=== PATIENT | male | born 1935 | race Caucasian/White ===

== ENCOUNTER → 2022-09-19 12:41 | Outpatient (BNVA) | payer MEDICARE, SELFPAY | PROVIDERS: PCP Internal Medicine; Visit Provider Internal Medicine Cardiovascular Disease | DX: I48.19 Other persistent atrial fibrillation (principal); I10 Essential (primary) hypertension | CPT/HCPCS: 93005; 99202 ==

== ENCOUNTER → 2022-10-14 07:44 | Outpatient (REF) | payer MEDICARE, SELFPAY ==
--- NOTE | 2022-10-14 07:47 | CA_ITS ---
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 The calculated ejection fraction is 51% by biplane method. - There is mild aortic valve regurgitation. - The left atrium is moderately dilated. Findings Left Ventricle Normal left ventricular cavity size. There is mildly increased left ventricular wall thickness. The left ventricular systolic function is mildly decreased. The calculated ejection fraction is 51% by biplane method. There is no evidence of regional wall motion abnormalities. Diastolic function is indeterminate on the basis of available data. Right Ventricle Normal right ventricular cavity size. There is low normal right ventricular systolic function. Atria The left atrium is moderately dilated. The right atrium is normal in size. Aortic Valve The aortic valve was not well visualized. There is no aortic valve stenosis. There is mild aortic valve regurgitation. Mitral Valve The mitral valve appears normal. There is trace mitral valve regurgitation. There is no mitral valve stenosis. Pulmonic Valve The pulmonic valve is likely normal. Tricuspid Valve Normal tricuspid valve structure. There is trace tricuspid valve regurgitation. There is no evidence of pulmonary hypertension. Great Vessels The asc aorta is normal in size. Venous The inferior vena cava is normal in size and collapses less than 50% with inspiration. Pericardium/Pleural There is no evidence of pericardial effusion. Prior Study Comparison No significant change compared to prior study dated: 11/27/2005. Measurements 2D Linear Measurements IVSd: 1.20 0.6-0.9/0.6-1.0 cm LVIDd: 4.14 3.9-5.3/4.2-5.9 cm LVIDd Index: 2.15 2.4-3.2/2.2-3.1 cm/m2 LVIDs: 2.74 2.0-3.6 cm LVPWd: 1.20 0.7-1.1 cm Ao Root: 3.70 2.1-3.5 cm LA Diam: 4.10 2.7-3.8/3.0-4.0 cm LAIDs Index: 2.12 1.5-2.3 cm/m2 LV Mass: 217.12 67-162/88-224 g LV Mass Index: 112.50 43-95/49-115 g/m2 LVOT Diam: 2.10 3.0+(-)1.3 cm 2D Systolic Function EF 4C: 51.70 >55% EF 2C: 52.30 >55% EF BiP: 50.90 >55% Mitral Valve MV Pk E: 0.84 MV Decel Time: 148.00 E'Lateral: 9.14 E'Medial: 9.46 E/E' Med: 8.80 E/E' Lat: 9.10 PHT: 43.00 MVA PHT: 5.12 Decel [place]: 5.66 Aortic Valve AoV Pk Joseph: 1.58 AoV Mn Joseph: 1.00 AoV VTI: 0.35 AoV Pk Grad: 10.00 Aov Mn Grad: 5.00 ARLENE Cont.VTI: 1.64 LVOT LVOT Pk Joseph: 0.75 LVOT Mn Joseph: 0.53 LVOT VTI: 0.16 LVOT Pk Grad: 2.00 LVOT Mn Grad: 1.00 LVOT Diam: 2.10 LVOT Area: 3.46 Diastolic Function MV Pk E: 0.84 E'Medial: 9.46 E/E' Med: 8.80 E' Laterial: 9.14 E/E' Lat: 9.10 Right Ventricle TAPSE (mm): 17.00 Tricuspid Valve TR Pk Joseph: 2.22 TR Pk Grad: 20.00 RA Press: 8.00 RVSP: 28.00 Great Vessels Aorta Ao Root-2D: 3.70 2.0-3.7 cm Ao Asc: 3.90 2.1-3.4 cm Pulmonary Valve PV Pk Joseph: 0.84 Peak PV Grad: 3.00 Updated in Other Vendor System with Status of Final Seferino Aguilera MD electronically signed on 10/14/2022 10:53:42 AM with status of Final
== END ==
LOC: HO.CARD 07:44
PROVIDERS: Absent Provider Internal Medicine Cardiovascular Disease; PCP Internal Medicine; Visit Provider Internal Medicine
DX: I48.19 Other persistent atrial fibrillation (principal)
CPT/HCPCS: 93306

== ENCOUNTER 2022-12-02 12:19 | Outpatient (AMB) | payer MEDICARE, SELFPAY ==
[2022-12-02 12:32] VITALS: BP 124/76; PULSE 91; BMI 28.0
--- NOTE | 2022-12-02 12:32 | A.OFFVIS_ITS ---
Intake Vital Signs 12/02/22 12:32 Height 5 ft 7 in Weight 178 lb 9.191 oz BMI 28.0 BP 124/76 Blood Pressure Location Lt brachial Position Sitting Pulse 91 Intake Visit Reasons: f/up echo/ 3 day Intake Note: Follow-up after echo with ekg feeling good Receiving Associate Required: No Allergies Sulfa (Sulfonamide Antibiotics) Allergy (Severe, Verified 09/19/22 13:00) Irritable penicillin G Allergy (Mild, Verified 09/19/22 13:00) rash Medication List - Last Reconciled 12/02/22 by Jeff Donis MD amlodipine 5 mg PO DAILY apixaban (Eliquis) 5 mg PO BID carvedilol 12.5 mg PO BID lisinopril 40 mg PO DAILY vitamin B complex (B Complex-Vitamin B12 tablet) 1 tab PO DAILY HPI HPI Comments History of Present Illness Details Ananda comes for follow-up. He continues to have no symptoms. Currently has been restarted on Eliquis after urology workup. There is no recurrent hematuria. He is tolerating this therapy well. He has no new symptoms of exercise intolerance with no heart failure symptoms. Denies any lightheadedness, syncope. Blood pressures been generally well controlled. Echocardiogram shows low normal LVEF with moderate left atrial enlargement. [facility] Medical History HTN (hypertension) Surgical History History of back surgery Hx of elbow surgery Family History Father No problems noted. Mother No problems noted. Brother CHF (congestive heart failure) CAD (coronary artery disease) Social History Patient Tobacco Use Status: Former Tobacco user Review of Systems Const Denies chills, Denies fatigue, Denies fever(s), Denies frequent falls, Denies weakness, Denies weight gain and Denies weight loss ENT Denies dizziness Card Denies chest pain, Denies leg edema, Denies lightheadedness, Denies palpitations, Denies dyspnea, Denies dyspnea on exertion, Denies orthopnea and Denies other (loss of consciousness) Resp Denies cough, Denies dyspnea and Denies dyspnea on exertion GI Denies hematochezia and Denies change in stool character Musc Denies abnormal gait, Denies muscle weakness, Denies numbness, Denies radiating pain into limb and Denies tingling Neuro Denies Abnormal speech present, Denies abnormal gait, Denies dizziness, Denies frequent falls, Denies numbness, Denies tingling and Denies weakness Endo Denies fatigue and Denies palpitations Physical Exam Vital Signs: Last Vital Signs Pulse 91 12/02/22 12:32 BP 124/76 12/02/22 12:32 BMI result Body Mass Index 28.0 Const General: cooperative, comfortable, no acute distress, alert, awake, Physically active and well groomed Nutritional Appearance: average body habitus Orientation/consciousness: patient oriented x3 Limitations: no limitations Neck Neck: Yes trachea midline, Yes supple and Yes no JVD Resp Effort & Inspection: normal respiratory effort Auscultation: clear to auscultation bilaterally Cardio Jugular venous distension: no JVD Rate: regular rate Rhythm: abnormal rhythm irregularly irregular Heart sounds: S1 normal heart sound present, S2 normal heart sound present, no click, no gallops, no murmurs and no rubs GI Auscultation: normal bowel sounds Neuro General: patient oriented x3 and no focal motor deficits Speech: No Abnormal speech present Extrem General: Yes no clubbing, cyanosis or edema Office Procedures EKG Details: EKG shows atrial fibrillation with no other abnormalities at 91 beats per minute [id number], Complete Assessment & Plan Assessment & Plan (1) Persistent atrial fibrillation: Code(s): I48.19 - Other persistent atrial fibrillation Plan: Persistent atrial fibrillation in this elderly gentleman with continued good functional status and no signs of congestive heart failure at this point time. We discussed about management again. He is tolerating oral anticoagulant therapy and this should be continued. Importance of oral anticoagulation was discussed. Quarterly renal function test and annual CBC should be checked. If he develops recurrent bleeding issues we discussed about potential use of Watchman device. Continue current rate control strategy. Given that he is not having much symptoms will pursue rate control strategy. This was discussed with him. He is advised to call me prior to travel to [place] if he is having any new symptoms. Continue carvedilol therapy for rate control. Will obtain Holter monitor in near future. (2) HTN (hypertension): Code(s): I10 - Essential (primary) hypertension Plan: Hypertension which is currently well optimized advised to continue current therapy. His blood pressure is currently well optimized. Target goal blood pressure less than 130/84. Low-salt diet was discussed. Will follow up in the clinic in 8 months time, sooner p.r.n.. Thank you for allowing me to partake in his care Orders: Orders ECG 3 day holter monitor Today I48.19 - Other persistent atrial fibrillation Coding Level of Care Code Est Pt Level 4 (60339) Diagnoses Persistent atrial fibrillation I48.19 HTN (hypertension) I10 CPT Codes EKG - CPT: 31638-[id number], Complete ([id number])
== END 2022-12-02 12:58 | disposition home or self-care (01) ==
PROVIDERS: PCP Internal Medicine; Referring Provider Internal Medicine; Visit Provider Internal Medicine Cardiovascular Disease
DX: I48.19 Other persistent atrial fibrillation (principal); I10 Essential (primary) hypertension
CPT/HCPCS: 93010; 99214

== ENCOUNTER → 2022-12-02 12:19 | Outpatient (BNVA) | payer MEDICARE, SELFPAY | PROVIDERS: PCP Internal Medicine; Referring Provider Internal Medicine; Visit Provider Internal Medicine Cardiovascular Disease | DX: I48.19 Other persistent atrial fibrillation (principal); I10 Essential (primary) hypertension | CPT/HCPCS: 93005; 99212 ==

== ENCOUNTER → 2022-12-06 08:25 | Outpatient (REF) | payer MEDICARE, SELFPAY ==
--- NOTE | 2022-12-06 08:28 | HM_ITS ---
Conclusion: 1. Patient was monitored for total period of 3 days 2. Baseline was atrial fibrillation with average heart of 81 beats per minute 3. No significant pauses noted 4. Frequent isolated PVCs noted with total burden of 2% 5. No patient reported events MTDD
== END ==
LOC: HO.CARD 08:25
PROVIDERS: PCP Internal Medicine; Visit Provider Internal Medicine Cardiovascular Disease
DX: I48.19 Other persistent atrial fibrillation (principal)
CPT/HCPCS: 93242

== ENCOUNTER → 2022-12-06 08:28 | Outpatient (BNV) | payer MEDICARE, SELFPAY | PROVIDERS: PCP Internal Medicine; Visit Provider Internal Medicine Cardiovascular Disease | DX: I48.19 Other persistent atrial fibrillation (principal) | CPT/HCPCS: 93244 ==

== ENCOUNTER 2023-08-26 10:17 | Outpatient (AMB) | payer MEDICARE, SELFPAY ==
--- NOTE | 2023-08-26 10:18 | MHC.OFFVIS ---
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 He has been doing very well from cardiac perspective. Continues to remain very active and plays 18 hole golf although he rides. He said he does plenty of walking. He has no exertional chest pain. He denies any shortness of breath. No orthopnea, PND, leg edema. Denies any prolonged palpitations irregular heartbeat. His blood pressure recordings at home have been well controlled. He denies any bleeding issues or neurologic events. [facility] Medical History HTN (hypertension) Surgical History History of back surgery Hx of elbow surgery Family History Father No problems noted. Mother No problems noted. Brother CHF (congestive heart failure) CAD (coronary artery disease) Social History Patient Tobacco Use Status: Former Tobacco user Review of Systems Const Denies chills, Denies fatigue, Denies fever(s), Denies frequent falls, Denies weakness, Denies weight gain and Denies weight loss ENT Denies dizziness Card Denies chest pain, Denies leg edema, Denies lightheadedness, Denies palpitations, Denies dyspnea, Denies dyspnea on exertion, Denies orthopnea and Denies other (loss of consciousness) Resp Denies cough, Denies dyspnea and Denies dyspnea on exertion GI Denies hematochezia and Denies change in stool character Musc Denies abnormal gait, Denies muscle weakness, Denies numbness, Denies radiating pain into limb and Denies tingling Neuro Denies Abnormal speech present, Denies abnormal gait, Denies dizziness, Denies frequent falls, Denies numbness, Denies tingling and Denies weakness Endo Denies fatigue and Denies palpitations Physical Exam Vital Signs: Last Vital Signs Pulse 80 08/26/23 10:19 BP 120/80 08/26/23 10:19 BMI result Body Mass Index 28.7 Const General: cooperative, comfortable, no acute distress, alert, awake, Physically active and well groomed Nutritional Appearance: average body habitus Orientation/consciousness: patient oriented x3 Limitations: no limitations Neck Neck: Yes trachea midline, Yes supple and Yes no JVD Resp Effort & Inspection: normal respiratory effort Auscultation: clear to auscultation bilaterally Cardio Jugular venous distension: no JVD Rate: regular rate Rhythm: abnormal rhythm irregularly irregular Heart sounds: S1 normal heart sound present, S2 normal heart sound present, no click, no gallops, no murmurs and no rubs GI Auscultation: normal bowel sounds Neuro General: patient oriented x3 and no focal motor deficits Speech: No Abnormal speech present Extrem General: Yes no clubbing, cyanosis or edema Assessment & Plan Assessment & Plan (1) Persistent atrial fibrillation: Code(s): I48.19 - Other persistent atrial fibrillation Category: Medical Plan: Chronic persistent atrial fibrillation without any symptoms or signs of cardiac decompensation. Heart rate is well controlled by last Holter monitoring. Continue current rate control therapy with carvedilol. Continue full oral anticoagulation, currently on Eliquis 5 mg b.i.d.. Quarterly renal function test should be pursued and dosing of Eliquis based on his creatinine. If creatinine is greater than 1.5, would reduce his Eliquis dose to 2.5 mg b.i.d.. Will obtain lab work from your office that was recently done. Continue maintain activity level as tolerated. Advised to call me with any new symptoms. Will follow-up echocardiogram in 6 months time. (2) HTN (hypertension): Code(s): I10 - Essential (primary) hypertension Category: Medical Plan: Hypertension which is currently well optimized advised to monitor blood pressure at home maintain a log. Goal blood pressure less than 130/84. Continue current drug regimen. Advised to continue monitor blood pressure at home maintain a log. Low-salt diet was discussed. Will follow up in the clinic in 6 months time, sooner p.r.n.. Thank you for allowing me to partake in his care Orders: Orders CA echo transthoracic complete 5 Months I48.19 - Other persistent atrial fibrillation Coding Level of Care Code Est Pt Level 4 (02391) Diagnoses Persistent atrial fibrillation I48.19 HTN (hypertension) I10
[2023-08-26 10:19] VITALS: BP 120/80; PULSE 80; BMI 28.7
== END 2023-08-26 10:53 | disposition home or self-care (01) ==
PROVIDERS: PCP Internal Medicine; Visit Provider Internal Medicine Cardiovascular Disease
DX: I48.19 Other persistent atrial fibrillation (principal); I10 Essential (primary) hypertension
CPT/HCPCS: 99214

== ENCOUNTER → 2023-08-26 10:17 | Outpatient (BNVA) | payer MEDICARE, SELFPAY | PROVIDERS: PCP Internal Medicine; Visit Provider Internal Medicine Cardiovascular Disease | DX: I48.19 Other persistent atrial fibrillation (principal); I10 Essential (primary) hypertension; Z79.01 Long term (current) use of anticoagulants; Z79.899 Other long term (current) drug therapy | CPT/HCPCS: 99212 ==

== ENCOUNTER → 2024-01-29 08:01 | Outpatient (REF) | payer MEDICARE, SELFPAY ==
--- NOTE | 2024-01-29 08:12 | CA_ITS ---
Transthoracic Echocardiogram Patient (Last, First, Middle): Ananda Whalen G Gender: Male Date of : 1935 Age: 88 Procedure Date: 01/29/2024 Procedure Type: Transthoracic Echocardiogram Location: OP Height: 167.64 cm Weight: 80.74 kg BSA: 1.90 m2 Heart Rate: bpm BP: 130 / 80 mmHg Gum Machine Filler: TO Referring MD: Jeff Donis MD Building Inspection Engineer: Jeff Donis MD Symptoms: I48.19 - Other persistent atrial fibrillation Study Quality: Fair ECG Rhythm: Atrial Fibrillation Conclusions: - 1. Low normal LV ejection fraction 50-55% 2. Severely dilated left atrium 3. Calcific mild aortic stenosis and regurgitation 4. Mildly dilated ascending aorta Findings Left Ventricle Normal left ventricular cavity size. There is normal left ventricular wall thickness. The left ventricular systolic function is low normal. The visually estimated ejection fraction is between 50-55%. Diastolic function is indeterminate on the basis of available data. Right Ventricle Normal right ventricular cavity size. There is mildly decreased right ventricular systolic function. Atria The left atrium is severely dilated. Interatrial shunt cannot be excluded. The right atrium is mildly dilated. Aortic Valve There is mild calcification of the aortic valve. There is mild thickening of the aortic valve. There is mild aortic valve stenosis. There is mild aortic valve regurgitation. Mitral Valve The mitral valve was not well visualized. There is trace mitral valve regurgitation. There is no mitral valve stenosis. Pulmonic Valve The pulmonic valve was not well visualized. Tricuspid Valve The tricuspid valve was not well visualized. Tricuspid regurgitation envelope is inadequate for calculation of right ventricular systolic pressure. Mildly elevated right atrial pressure. Great Vessels The pulmonary artery was not well visualized. There is mild dilatation of the ascending aorta measuring 3.80 cm. Small plaque is seen in the sino tubular ridge. Venous The inferior vena cava is mildly dilated and collapses less than 50% with inspiration. Pericardium/Pleural The pericardium was not well visualized. Prior Study Comparison Changes noted compared to prior study dated: 10/14/2022. mild aortic stenosis is noted Measurements 2D Linear Measurements IVSd: 1.16 0.6-0.9/0.6-1.0 cm LVIDd: 4.40 3.9-5.3/4.2-5.9 cm LVIDd Index: 2.32 2.4-3.2/2.2-3.1 cm/m2 LVIDs: 3.04 2.0-3.6 cm LVPWd: 0.98 0.7-1.1 cm LA Diam: 3.20 2.7-3.8/3.0-4.0 cm LAIDs Index: 1.68 1.5-2.3 cm/m2 LV Mass: 202.32 67-162/88-224 g LV Mass Index: 106.49 43-95/49-115 g/m2 LVOT Diam: 2.00 3.0+(-)1.3 cm 2D Systolic Function EF 4C: 50.70 >55% EF 2C: 53.90 >55% EF BiP: 51.10 >55% Mitral Valve MV Pk E: 0.92 MV Decel Time: 215.00 E'Lateral: 7.80 E'Medial: 8.27 E/E' Med: 11.20 E/E' Lat: 11.80 PHT: 63.00 MVA PHT: 3.49 Decel Grand: 4.29 Aortic Valve AoV Pk Joseph: 1.53 AoV Mn Joseph: 1.08 AoV VTI: 0.30 AoV Pk Grad: 9.00 Aov Mn Grad: 5.00 ARLENE Cont.VTI: 1.61 LVOT LVOT Pk Joseph: 0.69 LVOT Mn Joseph: 0.48 LVOT VTI: 0.15 LVOT Pk Grad: 2.00 LVOT Mn Grad: 1.00 LVOT Diam: 2.00 LVOT Area: 3.14 Diastolic Function MV Pk E: 0.92 E'Medial: 8.27 E/E' Med: 11.20 E' Laterial: 7.80 E/E' Lat: 11.80 Right Ventricle TAPSE (mm): 14.90 TVS' Joseph: 10.00 Tricuspid Valve RA Press: 8.00 Great Vessels Aorta Sinus of Valsalva: 4.23 2.0-3.[address] [place]: 2.99 1.7-3.4 cm Ao Asc: 3.80 2.1-3.4 cm Updated in Other Vendor System with Status of Final Jeff Donis MD electronically signed on 01/30/2024 8:51:54 AM with status of Final
== END ==
LOC: HO.CARD 08:01
PROVIDERS: PCP Internal Medicine; Visit Provider Internal Medicine Cardiovascular Disease
DX: I48.19 Other persistent atrial fibrillation (principal)
CPT/HCPCS: 93306

== ENCOUNTER → 2024-01-29 08:12 | Outpatient (BNV) | payer MEDICARE, SELFPAY | PROVIDERS: PCP Internal Medicine; Visit Provider Internal Medicine Cardiovascular Disease | DX: I35.2 Nonrheumatic aortic (valve) stenosis with insufficiency (principal); I48.19 Other persistent atrial fibrillation; I51.7 Cardiomegaly | CPT/HCPCS: 93306 ==

== ENCOUNTER 2024-02-25 13:38 | Outpatient (AMB) | payer MEDICARE, SELFPAY ==
--- NOTE | 2024-02-25 13:40 | MHC.OFFVIS ---
Vital Signs 02/25/24 13:41 Height 5 ft 7 in Weight 180 lb 12.465 oz BMI 28.3 BP 110/70 Blood Pressure Location Lt brachial Position Sitting Pulse 84 Intake Visit Reasons: f/up echo/ pt away in NOV w/ ekg r/sx2 Intake Note: Follow-up with ekg and echo results feeling good Instrumentation Tech Required: No Allergies Sulfa (Sulfonamide Antibiotics) Allergy (Severe, Verified 09/19/22 13:00) Irritable penicillin G Allergy (Mild, Verified 09/19/22 13:00) rash Medication List - Last Reconciled 02/25/24 by Jeff Donis MD amlodipine 5 mg PO DAILY apixaban (Eliquis) 5 mg PO BID carvedilol 12.5 mg PO BID lisinopril 40 mg PO DAILY vitamin B complex (B Complex-Vitamin B12 tablet) 1 tab PO DAILY HPI Comments Details: Ananda comes for follow-up. He has been doing well from cardiac perspective. Remains very active. Denies any exertional chest pain shortness of breath. No orthopnea, PND, leg edema. No prolonged palpitation irregular heartbeat. Takes all his medications. Most recent echocardiogram shows preserved LV ejection fraction with mild aortic stenosis. No bleeding issues or neurologic events. Recent creatinine at 1.44 PFSH Medical History HTN (hypertension) Surgical History History of back surgery Hx of elbow surgery Family History Father No problems noted. Mother No problems noted. Brother CHF (congestive heart failure) CAD (coronary artery disease) Social History Patient Tobacco Use Status: Former Tobacco user Review of Systems Const Denies chills, Denies fatigue, Denies fever(s), Denies frequent falls, Denies weakness, Denies weight gain and Denies weight loss ENT Denies dizziness Card Denies chest pain, Denies leg edema, Denies lightheadedness, Denies palpitations, Denies dyspnea, Denies dyspnea on exertion, Denies orthopnea and Denies other (loss of consciousness) Resp Denies cough, Denies dyspnea and Denies dyspnea on exertion GI Denies hematochezia and Denies change in stool character Musc Denies abnormal gait, Denies muscle weakness, Denies numbness, Denies radiating pain into limb and Denies tingling Neuro Denies Abnormal speech present, Denies abnormal gait, Denies dizziness, Denies frequent falls, Denies numbness, Denies tingling and Denies weakness Endo Denies fatigue and Denies palpitations Physical Exam Vital Signs: Last Vital Signs Pulse 84 02/25/24 13:41 BP 110/70 02/25/24 13:41 BMI result Body Mass Index 28.3 Const General: cooperative, comfortable, no acute distress, alert, awake, Physically active and well groomed Nutritional Appearance: average body habitus Orientation/consciousness: patient oriented x3 Limitations: no limitations Neck Neck: Yes trachea midline, Yes supple and Yes no JVD Resp Effort & Inspection: normal respiratory effort Auscultation: clear to auscultation bilaterally Cardio Jugular venous distension: no JVD Rate: regular rate Rhythm: abnormal rhythm irregularly irregular Heart sounds: S1 normal heart sound present, S2 normal heart sound present, no click, no gallops, Murmur heart sound present systolic early and no rubs GI Auscultation: normal bowel sounds Neuro General: patient oriented x3 and no focal motor deficits Speech: No Abnormal speech present Extrem General: Yes no clubbing, cyanosis or edema Office Procedures EKG Details: EKG shows atrial fibrillation with heart rate of 84 beats per minute [id number], Complete Assessment & Plan Assessment & Plan (1) Persistent atrial fibrillation: Code(s): I48.19 - Other persistent atrial fibrillation Category: Medical Plan: Chronic persistent atrial fibrillation without any obvious symptoms or signs of cardiac decompensation. Given chronicity of atrial fibrillation and significant left atrial enlargement will pursue rate control approach. Continue carvedilol therapy. Continue full oral anticoagulation, currently on Eliquis 5 mg b.i.d. although noted elevated creatinine. Needs to have basic metabolic profile every 3 months to follow creatinine and if it goes above 1.5 will need reduction dose of Eliquis. (2) HTN (hypertension): Code(s): I10 - Essential (primary) hypertension Category: Medical Plan: Hypertension which is currently well optimized advised to monitor blood pressure at home maintain a log. Goal blood pressure less than 130/84. Low-salt diet was discussed. Understands agrees. Continue maintain activity level as tolerated. (3) Aortic stenosis: Code(s): I35.0 - Nonrheumatic aortic (valve) stenosis Category: Medical Plan: Aortic stenosis which is mild. No interventions required from surgical perspective. Advised to continue monitor echocardiogram on a yearly basis. Will follow up in the clinic in 1 year's time, sooner p.r.n.. Thank you for allowing me to partake in his care Orders: Orders Basic Metabolic Panel 3 Months I48.19 - Other persistent atrial fibrillation CA echo transthoracic complete 1 Year I35.0 - Nonrheumatic aortic (valve) stenosis Coding Level of Care Code Est Pt Level 4 (58747) Complex EM visit Add On G2211 Diagnoses Persistent atrial fibrillation I48.19 HTN (hypertension) I10 Aortic stenosis I35.0 CPT Codes EKG - CPT: 57468-[id number], Complete ([id number])
[2024-02-25 13:41] VITALS: BP 110/70; PULSE 84; BMI 28.3
== END 2024-02-25 14:07 | disposition home or self-care (01) ==
LOC: HO.HCS 13:39
PROVIDERS: PCP Internal Medicine; Visit Provider Internal Medicine Cardiovascular Disease
DX: I48.19 Other persistent atrial fibrillation (principal); I10 Essential (primary) hypertension; I35.0 Nonrheumatic aortic (valve) stenosis
CPT/HCPCS: 93010; 99214; G2211

== ENCOUNTER → 2024-02-25 13:38 | Outpatient (BNVA) | payer MEDICARE, SELFPAY | PROVIDERS: PCP Internal Medicine; Visit Provider Internal Medicine Cardiovascular Disease | DX: I48.19 Other persistent atrial fibrillation (principal); I10 Essential (primary) hypertension; I35.0 Nonrheumatic aortic (valve) stenosis | CPT/HCPCS: 93005; 99212 ==

== ENCOUNTER → 2025-01-24 08:37 | Outpatient (REF) | payer MEDICARE, SELFPAY ==
--- NOTE | 2025-01-24 08:41 | CA_ITS ---
Transthoracic Echocardiogram Patient (Last, First, Middle): Ananda Whalen G Gender: M Date of : 1935 Age: 89 Procedure Date: 01/24/2025 Procedure Type: Transthoracic Echocardiogram Location: OP Height: 170.18 cm Weight: 81.19 kg BSA: 1.93 m2 Heart Rate: 54 bpm BP: 152 / 80 mmHg Cushion Maker: INES Referring MD: Jeff Donis MD Ambulance Driver: Jeff Donis MD Symptoms: I35.0 - Nonrheumatic aortic (valve) stenosis Study Quality: Fair ECG Rhythm: Atrial Fibrillation Conclusions: - 1. Low normal LV ejection fraction 50-55% 2. At least moderately dilated left atrium 3. Mild aortic stenosis and regurgitation 4. Mild mitral regurgitation 5. Mildly dilated ascending aorta at 4.2 cm 6. No gross pericardial effusion Findings Left Ventricle Normal left ventricular cavity size. There is mildly increased left ventricular wall thickness. The left ventricular systolic function is low normal. The visually estimated ejection fraction is between 50-55%. Diastolic function is indeterminate on the basis of available data. Right Ventricle Normal right ventricular cavity size and systolic function. Atria The left atrium is moderately dilated. Interatrial shunt cannot be excluded. The right atrium is moderately dilated. Aortic Valve There is moderate calcification of the aortic valve. There is mild aortic valve stenosis. There is mild aortic valve regurgitation. Mitral Valve There is mild anterior and posterior mitral leaflet thickening. There is mild mitral valve regurgitation. There is no mitral valve stenosis. Pulmonic Valve The pulmonic valve was not well visualized. Tricuspid Valve Likely normal tricuspid valve structure and function. Tricuspid regurgitation envelope is inadequate for calculation of right ventricular systolic pressure. Normal right atrial pressure. Great Vessels The pulmonary artery was not well visualized. There is mild dilatation of the ascending aorta measuring 4.20 cm. Venous The inferior vena cava is normal in size and collapses greater than 50% with inspiration. Pericardium/Pleural There is no evidence of pericardial effusion. Prior Study Comparison No significant change compared to prior study dated: 01/29/2024. Measurements 2D Linear Measurements IVSd: 1.20 0.6-0.9/0.6-1.0 cm LVIDd: 4.63 3.9-5.3/4.2-5.9 cm LVIDd Index: 2.40 2.4-3.2/2.2-3.1 cm/m2 LVIDs: 3.42 2.0-3.6 cm LVPWd: 1.17 0.7-1.1 cm LA Diam: 4.00 2.7-3.8/3.0-4.0 cm LAIDs Index: 2.07 1.5-2.3 cm/m2 LV Mass: 253.50 67-162/88-224 g LV Mass Index: 131.35 43-95/49-115 g/m2 LVOT Diam: 2.00 3.0+(-)1.3 cm 2D Systolic Function EF 4C: 46.60 >55% EF 2C: 53.90 >55% EF BiP: 49.80 >55% Mitral Valve MV Pk E: 0.90 MV Decel Time: 212.00 E'Lateral: 9.21 E'Medial: 7.87 E/E' Med: 11.40 E/E' Lat: 9.70 PHT: 62.00 MVA PHT: 3.55 Decel Caswell: 4.41 Aortic Valve AoV Pk Joseph: 1.68 AoV Mn Joseph: 1.19 AoV VTI: 0.37 AoV Pk Grad: 11.00 Aov Mn Grad: 7.00 ARLENE Cont.VTI: 1.42 AI Pk Joseph: 3.68 AI Caswell: 2.46 LVOT LVOT Pk Joseph: 0.75 LVOT Mn Joseph: 0.56 LVOT VTI: 0.17 LVOT Pk Grad: 2.00 LVOT Mn Grad: 1.00 LVOT Diam: 2.00 LVOT Area: 3.14 Diastolic Function MV Pk E: 0.90 E'Medial: 7.87 E/E' Med: 11.40 E' Laterial: 9.21 E/E' Lat: 9.70 Right Ventricle TAPSE (mm): 17.30 TVS' Joseph: 8.81 Tricuspid Valve RA Press: 3.00 Great Vessels Aorta Sinus of Valsalva: 3.70 2.0-3.5 cm Ao Asc: 4.20 2.1-3.4 cm Ao Arch: 2.80 Pulmonary Valve PV Pk Joseph: 0.78 Peak PV Grad: 2.00 Updated in Other Vendor System with Status of Final Jeff Donis MD electronically signed on 01/25/2025 12:39:54 PM with status of Final
--- OUTSIDE RECORDS SUMMARY | 2025-01-24 09:16 | XMS_ITS | Encounter Summary ---
Author Organization [facility] Address [address] [place] [id number] Phone Care Team Providers Care Pbx Operator Name Role Phone Juan Cárdenas MD Unavailable [phone] Juan Cárdenas MD Primary Care Provider [phone] Reason for Visit * Reason Comments Medication Refill Encounter Details Date Type Department Care Team (Late st Contact Info) Description 12/30/2024 Refill [facility] Internal Medicine [address], [place] [id number] Juan Cárdenas MD [address] [place] [address] [email or web address] Medication Refill Social History Tobacco Use Types Packs/Day Years Used Date Smoking Tobacco: Former Cigarettes 1 18 1 957 - 1975 Smokeless Tobacco: Never Alcohol Use Standard Drinks/Week Comments Yes 14 (1 standard drink = 0.6 oz pu re alcohol) 2 beers daily Education Answer Date Recorded Are you interested in more education? Not on delvin e 08/16/2022 Are you concerned about learning? Not on file 08/16/2022 No 08/16/2022 No 08/16/2022 Digital Access Answer Date Recorded No 09/10/2022 No 09/10/2022 Reliable internet access at home? Not on file 09/10/2022 Device with a working camera? Not on file Intimate Partner Violence Answer Date R ecorded Denied Basic Needs Not on file 08/24/2024 In the past 12 months have y ou been in a relationship with a person who hurts, threatens, or tries to control you? No 08/24/2024 Worried food would run out Not on file 08/24 In the past 12 months have y ou been in a relationship with a person who hurts, threatens, or tries to control you? No 08/24/2024 Sex and Gender Information Value Date Recorded Sex Assigned at Not on file Legal Sex Male 10:14 PM EDT Gender Identity Not on file Sexual Orientation Not on file documented as of this encounter Progress Notes * Jessica Sanchez CMA - 12/30/2024 10:04 AM EDT IMPORTANT - At least one Rx mismatch identified. Original(s) may be discontinued, , or different strength/form. Review required. Rx Care Gap Status - Instructions for Clinical Staff (prescriber discretion applies): > Mismatch review guide > N/a - No action needed Visit Info Last visit: 08/24/2024 Juan Cárdenas MD - Internal Medicine [facility] > Requested f/u: Not specified Upcoming visit: 02/04/2025 Juan Cárdenas MD - Internal Medicine [facility] ACTIONS TAKEN BY Jessica Sanchez CMA - Criteria met. Direct Oral Anticoagulant (DOAC) Rx Protocol - apixaban Rx mismatch - Original discontinued, , or different strength/form. Criteria for reference: Visit in the past 14 months: Yes Clinical criteria: - BMP within past year: Yes Lab Results Component Value Date SODIUM 139 08/25/2024 POTASSIUM 4.6 08/25/2024 CHLORIDE 104 08/25/2024 CO2 27 08/25/2024 BUN 18 08/25/2024 CREATININE 1.00 08/25/2024 EGFR 73 08/25/2024 documented in this encounter Plan of Treatment Upcoming Encounters Date Type Department Care Team (Late st Contact Info) Description 02/04/2025 9:30 AM EDT [facility] Internal Medicine [address] [place] [address] Juan Cárdenas MD [address] [place] [address] [email or web address] documented as of this encounter Visit Diagnoses Diagnosis Benign essential hypertension Essential hypertension, benign New onset atrial fibrillation Atrial fibrillation documented in this encounter Additional Health Concerns Assessment Noted Time PHQ-2 Depression Total Score: 0 08/21/19 25 2:16 PM EDT documented as of this encounter Care Teams Pbx Operator Relationship Specialty Start Date End Date Juan Cárdenas MD [address] [place] [id number] PCP - General Internal Medicine 10/29/19 Juan Cárdenas MD [address] [place] [address] Insurance Assigned Provider 07/26/23 documented as of this encounter Additional Source Comments The information contained in this document represents components of the legal health record. It is not the complete legal health record.[facility]
--- OUTSIDE RECORDS SUMMARY | 2025-01-24 09:16 | XMS_ITS | Clinical Summary ---
Author Organization [facility] Address [address] [address] Phone Care Team Providers Care Correspondence Transcriber Name Role Phone Juan Cárdenas MD Unavailable [phone] Juan Cárdenas MD Primary Care Provider [phone] Allergies Active Allergy Reactions Criticality Noted Date Comments Penicillins Swelling 10/07/2019 Arms & face Sulfa (Sulfonamide Antibiotics) Other (See Comments) 10/07/2019 drove him wacky Venom-Wasp Swelling 02/06/2021 Also allergic to hornets Medications EPINEPHrine (EPIPEN 2-QUINN) 0.3 mg/0.3 mL auto-injectorIn dications:Bee allergy status Inject 0.3 mL (0.3 mg total) into the muscle once as needed for anaphylaxis. use as needed for bee stings Intramuscular as directed 2 Device 3 018 Active cyanocobalamin, vitamin B-12, 100 MCG tablet Take 1,000 mcg by mouth daily. Active celecoxib (CELEBREX) 200 MG capsuleIndicati ons:Chronic knee pain, unspecified laterality Take 1 capsule (200 mg total) by mouth daily. 20 capsule 023 Active Additional Information Patient taking differently:200 mg OralDaily as needed, Reported on 08/14/2023 tadalafiL (CIALIS, ADCIRCA) 20 MG tabletIndicatio ns:Erectile dysfunction, unspecified erectile dysfunction type Take 1 tablet (20 mg total) by mouth daily as needed. 10 tablet 024 Active carvedilol (COREG) 12.5 MG tabletIndicatio ns:Essential hypertension Take 1 tablet (12.5 mg total) by mouth 2 (two) times a day with meals. 180 tablet 3 Active lisinopril (PRINIVIL,ZESTR IL) 40 MG tabletIndicatio ns:Essential hypertension Take 1 tablet (40 mg total) by mouth daily. 90 tablet 3 024 Active amLODIPine (NORVASC) 5 MG tabletIndicatio ns:Essential hypertension Take 1 tablet (5 mg total) by mouth daily. 90 tablet 3 024 Active ELIQUIS 5 mg tabletIndicatio ns:Benign essential hypertension,Ne w onset atrial fibrillation TAKE 1 TABLET TWICE A DAY 180 tablet 025 Active apixaban (ELIQUIS) 5 mg tabletIndicatio ns:Benign essential hypertension,Ne w onset atrial fibrillation Take 1 tablet (5 mg total) by mouth 2 (two) times a day. 180 tablet 3 024 2024 Discontinued Active Problems Problem Noted Date Diagnosed Date Malignant melanoma of skin of face 02/11/2023 Essential hypertension 02/01/2020 Hypertension 01/11/2019 History of aortic insufficiency 01/11/2019 Overview (01/11/2019): and mitral insufficiency History of transient ischemic attack (TIA) 04/21 Overview (01/11/2019): in 04/2003 - symptoms were visual abnormality affecting the right eye (amaurosis fugax) Encounters Date Type Department Care Team Description 12/30/2024 Refill [facility] Internal Medicine [address] [place] [address] Juan Cárdenas MD Medication Refill 12/08/2024 Ancillary Orders [facility]Outside Imaging [address] [place] [address] System, Provider Not In, PhD 12/08/2024 Telephone [facility] Internal Medicine [address] [place] [address] Juan Cárdenas MD possible artery calcification 11/26/2024 - 11/26/2024 11:59 PM EDT Hospital Encounter [facility]Outside Imaging [address] [place] [address] System, Provider Not In, PhD Discharge Disposition: Home or Self Care from Last 3 Months Immunizations Immunization Administration Dates Next Due COVID-19 (Pre-02/10) Pfizer Vaccine, mRNA, PF 06/19/2020,05/29/2020 COVID-19 Pfizer Comirnaty Vaccine 12+ 05/10/2024 ,03/31/2023 INFLUENZA, SPLIT VIRUS, TRIV ALENT W/ PRESERVATIVE IM 12/20/2016,02/21/2012 Influenza High-Dose Quadriva lent Preservative Free IM 02/11/2023,02/05/2022,02/01/2020 Influenza High-Dose Trivalen t Preservative Free IM 01/02/2024,01/11/2019,01/09/2018,01/06,02/08/2016,02/20/2015,02/18/2014 ,02/15/2013 Influenza Quadrivalent Adjuv anted Preservative Free IM 02/02/2021 Influenza, Unspecified Formulation 02/15/2011,,01/27/2009 Pneumococcal conjugate PCV13 09/30/2014 Pneumococcal polysaccharide PPSV23 09/22/2012, Td (adult) 5 Lf Tetanus Toxo id, PF, Adsorbed 09/12/2011,07/20/2001 Zoster live 10/20/2011 Zoster recombinant 04/25/2020,02/01/2020 Family History Medical History Relation Comments COPD Brother Lung cancer Brother Colon cancer Father Ovarian cancer Mother Relation Status Comments Brother (Age 86) copd Father (Age 93) Mother (Age 47) ovarian cancer Sister (Age 90) Social History Tobacco Use Types Packs/Day Years Used Date Smoking Tobacco: Former Cigarettes 1 18 1 957 - 1974 Smokeless Tobacco: Never Tobacco Cessation:Counseling Given: Not Answered Alcohol Use Standard Drinks/Week Comments Yes 14 [...] on file Sexual Orientation Not on file Last Filed Vital Signs Vital Sign Reading Time Taken Comments Blood Pressure 132/68 08/24/2024 8:51 AM EDT Pulse 84 08/24/2024 8:51 AM EDT Temperature 36.6 C (97.9 F) 08/24/2024 8:51 AM EDT Respiratory Rate 20 08/24/2024 8:51 AM EDT Oxygen Saturation 99% 08/24/2024 8:51 AM EDT Inhaled Oxygen Concentration - - Weight 79.8 kg (176 lb) 08/24/2024 8:51 AM EDT Height 169.3 cm (5' 6.65 ) 08/24/2024 8:51 AM ED T Body Mass Index 27.85 08/24/2024 8:51 AM EDT Plan of Treatment Upcoming Encounters Date Type Department Care Team (Late st Contact Info) Description 02/04/2025 9:30 AM EDT Office Visit [facility] Internal Medicine [address] [place] [address] Juan Cárdenas MD [address] [place] [address] [email or web address] Health Maintenance Due Date Last Done Comments RSV VACCINE (1 - 1-dose 75+ series) 2012 Adult Td,Tdap Booster 09/11/2021 09/12/2011, 002 INFLUENZA VACCINE (#1) 2024 , 02/11/2023, 02/11/2023, Additional history exists COVID-19 VACCINE ( season) 2024 05/10/2024, 03/31/2023, 02/05/2022, Additional history exists DEPRESSION SCREENING 08/20/2025 08/20/2024 CREATININE LEVEL 08/25/2025 08/25/2024, , 08/07/2023, Additional history exists POTASSIUM LEVEL 08/25/2025 08/25/2024, 11/21, 08/07/2023, Additional history exists PNEUMOCOCCAL VACCINES (50+ years) Completed 09/30/2014, 09/22/2012, 01/19/2003 ZOSTER VACCINES Completed 04/25/2020, 01/19, 10/20/2011 HEPATITIS A VACCINES Aged Out No long er eligible based on patient's age to complete this topic HIB VACCINES Aged Out No longer eligi ble based on patient's age to complete this topic MENINGOCOCCAL VACCINES (ACWY) Aged Out No longer eligible based on patient's age to complete this topic MENINGOCOCCAL VACCINES (B) Aged Out N o longer eligible based on patient's age to complete this topic Medical Devices Not on file Procedures Procedure Name Priority Date/Time Associated Diagnosis Comments XR FACE OUTSIDE (NO INTERPRETATION) Routine 11/26/2024 12:00 AM EDT COMPREHENSIVE METABOLIC PANEL Routine 08/25/2024 8:20 AM EDT Benign essential hypertension Paroxysmal atrial fibrillation Impaired fasting glucose Encounter for monitoring direct oral anticoagulant therapy from Last 3 Months or Most Recently Relevant to Health Maintenance Results * XR Face Outside (No Interpretation) (11/26/2024 12:00 AM EDT) Narrative SYSTEMGENERATED, DOCUMENTATION - 12/08/2024 3:27 PM EDT This study is for PACS storage only and not for interpretation. us Provider Not In System PhD IMG OUTSIDE IMAGING W /OUT INTERPRETATION Final Result * Comprehensive metabolic panel (08/25/2024 8:20 AM EDT) SODIUM 139 133 - 146 mmol/L [facility] POTASSIUM 4.6 3.3 - 5.1 mmol/L [facility] CHLORIDE 104 96 - 108 mmol/L [facility] CO2 27 21 - 35 mmol/L [facility] BUN 18 6 - 19 mg/dL [facility] CREATININE 1.00 0.5 - 1.5 mg/dL [facility] GLUCOSE 96 70 - 99 mg/dL [facility] ALBUMIN 4.2 3.9 - 4.8 g/dL [facility] TOTAL PROTEIN 6.9 6.5 - 8.0 g/dL [facility] CALCIUM 9.4 8.4 - 10.3 mg/dL [facility] ALKALINE PHOSPHATASE 63 39 - 117 U/L [facility] TOTAL BILIRUBIN 0.9 0.0 - 1.2 mg/dL [facility] AST 21 0 - 37 U/L [facility] ALT 12 0 - 40 U/L [facility] GLOBULIN 2.7 1 - 4.8 g/dL [facility] EGFR 73 >59 mL/min/1.7 3m2 [facility] Comment:Estimated glomerular filtration rate calculated using the CKD-EPI refit equation. ANION GAP 13 10 - 20 mmol/L [facility] Blood 08/25/2024 8:20 AM EDT 08/25/2024 8:29 AM EDT us Juan Cárdenas MD LAB BLOOD ORDERABLES Final Re sult [address] [address] from Last 3 Months or Most Recently Relevant to Health Maintenance Insurance MEDICARE PART A & B [employer] SUPPLEMENT MEDICARE PART A & B [employer] SUPPLEMENT MEDICARE PART A & B [employer] MEDEX SUPPLEMENT MEDICARE PART A & B [employer]EX SUPPLEMENT MEDICARE PART A & B [employer] MEDEX SUPPLEMENT MEDICARE PART A & B [employer] MEDEX SUPPLEMENT MEDICARE PART A & B [facility] MEDEX SUPPLEMENT MEDICARE PART A & B [employer] MED[employer] SUPPLEMENT MEDICARE PART A & B [employer] SUPPLEMENT Care Teams Correspondence Transcriber Relationship Specialty Start Date End Date Juan Cárdenas MD [address] [place] [id number] [email or web address] PCP - General Internal Medicine 10/29/19 Juan Cárdenas MD [address] [place] [address] [email or web address] Insurance Assigned Provider 07/26/23 Additional Source Comments The information contained in this document represents components of the legal health record. It is not the complete legal health record.[facility]
--- OUTSIDE RECORDS SUMMARY | 2025-01-24 09:16 | XMS_ITS | Encounter Summary ---
Author Organization [facility] Address [address] [address] Phone Care Team Providers Care Mitten Sewer Name Role Phone Juan Cárdenas MD Unavailable [phone] Juan Cárednas MD Primary Care Provider [phone] Encounter Details Date Type Department Care Team (Late st Contact Info) Description 12/08/2024 Ancillary Orders [facility],Outside Imaging [address] [place] [address] System, Provider Not In, PhD [facility] [address] [address] Social History Tobacco Use Types Packs/Day Years Used Date Smoking Tobacco: Former Cigarettes 1 18 1 957 - 1974 Smokeless Tobacco: Never Alcohol Use Standard Drinks/Week [...] on file documented as of this encounter Plan of Treatment Upcoming Encounters Date Type Department Care Team (Late st Contact Info) Description 02/04/2025 9:30 AM EDT Office Visit [facility] Internal Medicine [address] [place] [address] Juan Cárdenas MD [address] [place] [address] [email or web address] documented as of this encounter Results * XR Face Outside (No Interpretation) (11/26/2024 12:00 AM EDT) Narrative SYSTEMGENERATED, DOCUMENTATION - 12/08/2024 3:27 PM EDT This study is for PACS storage only and not for interpretation. us Provider Not In System PhD IMG OUTSIDE IMAGING W /OUT INTERPRETATION Final Result documented in this encounter Visit Diagnoses Not on filedocumented in this encounter Additional Health Concerns Assessment Noted Time PHQ-2 Depression Total Score: 0 08/21/19 25 2:16 PM EDT documented as of this encounter Care Teams Mitten Sewer Relationship Specialty Start Date End Date Juan Cárdenas MD [address] [place] [address] PCP - General Internal Medicine 10/29/19 Juan Cárdenas MD [address] [place] [address] [email or web address] Insurance Assigned Provider 07/26/23 documented as of this encounter Additional Source Comments The information contained in this document represents components of the legal health record. It is not the complete legal health record.[facility]
--- OUTSIDE RECORDS SUMMARY | 2025-01-24 09:16 | XMS_ITS | Encounter Summary ---
Author Organization [facility] Address [address] [place] [address] Phone Care Team Providers Care Concession Worker Name Role Phone Juan Cárdenas MD Unavailable [phone] Juan Cárdenas MD Primary Care Provider [phone] Encounter Details Date Type Department Care Team ([facility] Contact Info) Description 09/10/2022 Procedure Pass [facility], Ct Scan - [address] [address] Social History Tobacco Use Types Packs/Day Years [...] with a working camera? Not on file Sex and Gender Information Value Date Recorded Sex Assigned at Not on file Legal Sex Male 10:14 PM EDT Gender Identity Not on file Sexual Orientation Not on file documented as of this encounter Plan of Treatment Upcoming Encounters Date Type Department Care Team (Late Contact Info) Description 02/04/2025 9:30 AM EDT Office Visit [facility] Internal Medicine [address] [place] [address] Juan Cárdenas MD [address] [place] [address] [email or web address] documented as of this encounter Visit Diagnoses Not on filedocumented in this encounter Additional Health Concerns Infection Onset Date Last Indicated Resolved Time COVID-19 12/06/2023 12/06/2023 12/27/2023 1:21 AM EDT CoV-Risk 08/20/2024 08/20/2024 08/31/2024 1:21 AM EDT Assessment Noted Time PHQ-2 Depression Total Score: 0 08/13/19 1:49 PM EDT documented as of this encounter Care Teams Concession Worker Relationship Specialty Start Date End Date Juan Cárdenas MD [address] [place] [address] PCP - General Internal Medicine 10/29/19 Juan Cárdenas MD [address] [place] [address] Insurance Assigned Provider 07/26/23 documented as of this encounter Additional Source Comments The information contained in this document represents components of the legal health record. It is not the complete legal health record.[facility]
--- OUTSIDE RECORDS SUMMARY | 2025-01-24 09:16 | XMS_ITS | Patient Health Record ---
Author Organization [facility] Address [address] [place] [address] Care Team Providers Care Floor Waxer Name Role Phone Juan Cárdenas MD Primary Care Provider Raghavendra Daily Unavailable [phone] Allergies Allergen (clinical drug ingredient) Drug/Non Drug Allergy documented on EMR Reaction Allergy Type Onset Date Status Sulfa Unknown Drug Allergy Active Penicillin Unknown Drug Allergy Active bees (uncoded) Unknown Allergy Activ e Reason For Referral No Information Medications Medication SIG (Take, Route, Frequency, Duration) Notes Start Date End Date Status Lisinopril 40 mg Act lore Toprol XL 25 mg Acti ve hydroCHLOROthiazide 25 mg Active Colyte with Flavor Packs 240 GM As direc moe Orally once for 1 dose 12/20/2011 Active Baby Aspirin 81 mg A ctive Problems Problem Type SNOMED Code ICD Code Onset Dates Problem Status W/U Status Risk Notes Problem Screening for colon cancer (860783833) Screening for colon cancer (V76.51) Active confirmed Problem History of adenomatous polyp of colon (308903874) History of adenomatous polyp of colon (V12.72) Active confirmed Problem Family history of malignant neoplasm of gastrointestinal tract (124409574) Family history of cancer of GI tract (V16.0) Active confirmed Plan Of Treatment Future Test Test Name Order Date COLONOSCOPY 12/20/2011 Insurance Providers Payer Name Payer Address Payer Phone Subscriber Number Group Number Insured Name Patient Relationship to Insured Coverage Start Date Coverage End Date MEDICARE OF [place] [address] [place] [address] [id number] JITENDRA HELLER Self - patient is the insured MEDEX ATTN CLAIMS [address] [place] [address] [id number] JITENDRA HELLER Self - patient is the insured Medical (General) History Medical History History ICD Code hx of colon polyps hypertension Denies [place],DM,CVA,Lung disease,renal dise ase Surgical History Surgery Date(Month/Year) cervical spine disc surgery broken elbow
--- OUTSIDE RECORDS SUMMARY | 2025-01-24 09:17 | XMS_ITS | Clinical Summary ---
Author Organization [facility] Address [address] [facility] [address] [place] [address] Phone Care Team Providers Care Vacuum Conditioner Operator Name Role Phone Juan Cárdenas MD Primary Care Provider [phone] Allergies Active Allergy Reactions Criticality Noted Date Comments Penicillins Swelling 10/07/2019 Arms & face Sulfa Antibiotics Other (see comments) 10/07/19 20 drove him wacky Wasp Venom Protein Swelling 02/06/2021 Also allergic to hornets Medications aspirin (ST MIKE) 81 MG EC tablet Take 1 tablet by mouth daily Active cyanocobalamin (VITAMIN B-12) 1000 MCG tablet Take 1,000 mcg by mouth daily Active EPINEPHrine (EPIPEN) 0.3 MG/0.3ML injection syringe Inject 0.3 mg into the shoulder, thigh, or buttocks 8 Active carvedilol (COREG) 12.5 MG tabletIndications :Essential hypertension Take 1 tablet (12.5 mg total) by mouth 2 (two) times a day with meals 180 tablet 3 1 Active amLODIPine (NORVASC) 5 MG tabletIndications :Essential hypertension Take 1 tablet (5 mg total) by mouth 1 (one) time each day 90 tablet 3 1 Active lisinopril 40 MG tablet TAKE 1 TABLET BY MOUTH EVERY DAY 90 tablet 1 Active Active Problems Problem Noted Date Diagnosed Date Stage 3a chronic kidney disease 01/23/2021 Essential hypertension 01/11/2019 H/O: heart disorder 01/11/2019 Overview (10/17/2020): and mitral insufficiency Family history of transient ischemic attack 04/2003 Overview (10/17/2020): in 04/2003 - symptoms were visual abnormality affecting the right eye (amaurosis fugax) Immunizations Immunization Administration Dates Next Due Influenza Split High Dose Pr eservative Free IM 02/01/2020,01/11/2019,01/09/2018,01/06,02/08/2016,02/20/2015,02/18/2014 ,02/15/2013 Influenza TIV (IM) 02/21/2012 Influenza Vaccine, Quadrival ent, Adjuvanted 02/02/2021 Influenza, Unspecified 02/15/2011,01/16/2010,12/2008 Pfizer SARS-COV-2 06/19/2020,05/29/2020 Pneumococcal Conjugate 13-Valent 09/30/2014 Pneumococcal Polysaccharide 09/22/2012, 3 TD Preservative Free 09/12/2011,07/20/2001 Zoster 04/25/2020,02/01/2020,10/20/2011 Family History Medical History Relation Comments Cancer Father Cancer Mother Relation Status Comments Father (Age 93) Colon Cancer Mother (Age 47) Ovarian Cancer Social History Tobacco Use Types Packs/Day Years Used Date Smoking Tobacco: Former Cigarettes Q uit: 10/24/1974 Smokeless Tobacco: Never Alcohol Use Standard Drinks/Week Comments Yes 2 (1 standard drink = 0.6 oz pur e alcohol) daily Sex and Gender Information Value Date Recorded Sex Assigned at Not on file Legal Sex Male 12:28 PM EDT Gender Identity Not on file Sexual Orientation Not on file Last Filed Vital Signs Vital Sign Reading Time Taken Comments Blood Pressure 142/80 01/23/2021 1:31 PM EDT Pulse 75 01/23/2021 1:31 PM EDT Temperature - - Respiratory Rate - - Oxygen Saturation 99% 01/23/2021 1:31 PM EDT Inhaled Oxygen Concentration - - Weight 84.4 kg (186 lb) 01/23/2021 1:31 PM EDT Height 172.7 cm (5' 8 ) 10/24/2020 2:54 PM EDT Body Mass Index 28.28 10/24/2020 2:54 PM EDT Plan of Treatment Health Maintenance Due Date Last Done Comments Influenza Vaccine (#1) 2024 , 02/01/2020, 01/11/2019, Additional history exists Pneumococcal Vaccine: 50+ Years Completed 09/30/2014, 09/22/2012, 01/19/2003 Hepatitis B Vaccine Aged Out No longe r eligible based on patient's age to complete this topic Insurance Medicare [facility] Medicare [facility] Care Teams Vacuum Conditioner Operator Relationship Specialty Start Date End Date Juan Cárdenas MD [address] [place] [address] PCP - General Internal Medicine 09/13/20
--- OUTSIDE RECORDS SUMMARY | 2025-01-24 09:17 | XMS_ITS | Encounter Summary ---
Author Organization [facility] Address [address] [place] [address] Phone Care Team Providers Care Senior Accounting Analyst Name Role Phone Juan Cárdenas MD Unavailable [phone] Juan Cárdenas MD Primary Care Provider [phone] Reason for Visit * Reason Onset Date Comments Hematuria 09/10/2022 Encounter Details Date Type Department Care Team (Late st Contact Info) Description 09/10/2022 Nurse Triage [facility] Internal Medicine [address] [place], [place] [id number] Juan Cárdenas MD [address] [place] [address] [email or web address] Hematuria Social History Tobacco Use Types Packs/Day Years [...] as of this encounter Progress Notes * Mike Villa - 09/10/2022 2:26 PM EDT Spoke to and she will let know. Appt booked for today at 4:30 * Juan Cárdenas MD - 09/10/2022 1:07 PM EDT Have him come in at 430 and see me need to do urinalysis and culture when arrives Sand then see me * Kalee Grier RN - 09/10/2022 10:15 AM EDT Stopped Eliquis yesterday. No clots. Urine is now clear yellow. Denies pain or injury to area. Wishes to get a reply from Dr. Cárdenas on this prior [facility] Nurse Triage Encounter Note Reason for Triage Ananda Whalen contacted office for Hematuria Call Disposition Schedule Same Day Visit/Appt Patient/caregiver understands and will follow disposition: No, Wishes To Speak With Pcp Patient/caregiver understands and will follow care advice: No, Wishes To Speak To Pcp Disposition Comments: Protocols used: Urine - Blood In-Adult-Oh Initial Symptom Screening and Assessment IA None y Care Advice Given Care Advice Patient/Caregiver understands and will follow care advice?: No, wishes to speak to PCP GO TO OFFICE NOW: * You need to be examined. Come into the office right now. * IF NO AVAILABLE APPOINTMENTS: You need to be seen in an Urgent Care Center. Go to the one at [facility].Leave now. A nearby Urgent Care Center is often a good source of care. Another choice is to go to the Emergency Department. Patient will call back with additional questions or if symptoms change or worsen Kalee Grier RN Reason for Disposition and Assessment Reason for Disposition ??? Taking Coumadin (warfarin) or other strong blood thinner, or known bleeding disorder (e.g., thrombocytopenia) Protocols used: URINE - BLOOD IN-ADULT-[place] * Joseph Dahl - 09/10/2022 10:03 AM EDT PTLVM on triage line, last night his urine was red, today it is brown, also has questions about hisuse of eliquis, he will not use it until he hears back. documented in this encounter Plan of Treatment Upcoming Encounters Date Type Department Care Team (Late st Contact Info) Description 02/04/2025 9:30 AM EDT Office Visit [facility] Internal Medicine [address] [place], [place] [id number] Juan Cárdenas MD [address] [place] [address] [email or web address] documented as of this encounter Results * (ABNORMAL) URINALYSIS WITH SEDIMENT (09/12/2022 3:46 PM EDT) WBC 0-4(A) NONE SEEN /hpf [facility] RBC 0-2(A) NONE SEEN /hpf [facility] URINE EPITHELIAL 0-4(A) NONE SEEN [facility] MUCUS NONE SEEN NONE SEEN /hpf [facility] BACTERIA NONE SEEN NONE SEEN /hpf [facility] COLOR Yellow Yellow [facility] CLARITY Clear [facility] GLUCOSE Negative Negative [facility] BILI Negative Negative [facility] KETONES Negative Negative [facility] SPECIFIC GRAVITY 1.025 1.005 - 1.030 [facility] BLOOD Negative Negative [facility] PH 6.0 5.0 - 8.0 [facility] Protein-UA Negative Negative [facility] NITRITE Negative Negative [facility] Leukocyte esterase, ur Negative Negative [facility] Urine (Urine) 09/12/2022 3:4 6 PM EDT 09/12/2022 3:49 PM EDT us Juan Cárdenas MD URINE ORDERABLES Final Result Performing Organization Address City/[facility]/ZIP Co de Phone Number [address] [address] * Urine culture (09/10/2022 1:11 PM EDT) Special Requests None 09/10/2022 8:31 PM EDT [facility] Urine Culture NO GROWTH 48HRS 09/12/2022 12:32 PM EDT [facility] Urine (Urine) 09/10/2022 1:1 1 PM EDT 09/10/2022 8:32 PM EDT us Juan Cárdenas MD MICROBIOLOGY - GENERAL ORDERA BLES Final Result Performing Organization Address City/[facility]/ZIP Co de Phone Number [address] [address] documented in this encounter Visit Diagnoses Diagnosis Gross hematuria documented in this encounter Additional Health Concerns Infection Onset Date Last Indicated Resolved Time COVID-19 12/06/2023 12/06/2023 12/27/2023 1:21 AM EDT CoV-Risk 08/20/2024 08/20/2024 08/31/2024 1:21 AM EDT Assessment Noted Time PHQ-2 Depression Total Score: 0 08/13/19 1:49 PM EDT documented as of this encounter Care Teams Senior Accounting Analyst Relationship Specialty Start Date End Date Juan Cárdenas MD [address] [place] [address] PCP - General Internal Medicine 10/29/19 Juan Cárdenas MD [address] [place] [address] Insurance Assigned Provider 07/26/23 documented as of this encounter Additional Source Comments The information contained in this document represents components of the legal health record. It is not the complete legal health record.[facility]
== END ==
LOC: HO.CARD 08:37
PROVIDERS: PCP Internal Medicine; Visit Provider Internal Medicine Cardiovascular Disease
DX: I35.0 Nonrheumatic aortic (valve) stenosis (principal)
CPT/HCPCS: 93306

== ENCOUNTER → 2025-01-24 08:41 | Outpatient (BNV) | payer MEDICARE, SELFPAY | PROVIDERS: PCP Internal Medicine; Visit Provider Internal Medicine Cardiovascular Disease | DX: I35.2 Nonrheumatic aortic (valve) stenosis with insufficiency (principal); I51.7 Cardiomegaly | CPT/HCPCS: 93306 ==

== ENCOUNTER 2025-02-14 13:39 | Outpatient (AMB) | payer MEDICARE, SELFPAY ==
--- OUTSIDE RECORDS SUMMARY | 2016-06-09 20:00 | XMS_ITS | Continuity of Care Document ---
Author Organization [facility] Address [address] [place] [address] [place] [address] Phone Care Team Providers Care Graduate Student Name Role Phone RCM, Rendering Unavailable Unavailable Allergies, Adverse Reactions, Alerts Substance Reaction Status Criticality Penicillins Active No Information Sulfa (Sulfonamide Antibiotics) Active No Information Advance Directives Directive Yes / No Effective Date File Name No Information Encounters Encounter Description Practice Location Reason(s) For Visit Diagnoses Date Provider Providers Copied on Encounter [facility], [address] [place] [address], [id number] , tel: [phone] [facility] Location No Information May-2 0-201 7 RCM Rendering . [address] [place] [address], [id number], . tel: [phone] [facility], [address] [place] [address], [id number] , tel: [phone] [facility] Location Keratoconjunctivitis sicca, not specified as Sjogren's, bilateralRegular astigmatism, bilateralDrusen (degenerative) of macula, bilateralPuckering of macula, bilateralOther secondary cataract, bilateral Feb-0 6-201 7 [facility] Rendering . [address] [place] [address], [id number], . tel: [phone] [facility], [address] [place] [address], [id number] , [place] tel: [phone] [facility] Location Other secondary cataract, bilateralKeratoconjun ctivitis sicca, not specified as Sjogren's, bilateralPuckering of macula, bilateralPresence of intraocular lensPuckering of macula, right eyeDrusen (degenerative) of macula, bilateral 3-201 7 RCM Rendering . [facility] [place], [address], [place]. tel:[phone] [facility], [address] [facility] [place], [place], [id number] , [place] tel:[phone] [facility] Location Posterior subcapsular polar age-related cataract, right eyePresence of intraocular lensAge-related nuclear cataract, bilateralRegular astigmatism, bilateral 3-201 5 [facility] Rendering . [address] [place] [address], [id number], [place]. tel:[phone] [facility], [address] [facility], [place], [place], [id number] , [place] tel:[phone] [facility] Location Presence of intraocular lens 3-201 5 R[facility] Rendering . [address] [place] [address], [id number], [place]. tel:[phone] [facility], [facility], [place], [place], [id number] , [place] tel:[phone] [facility] Location Presence of intraocular lens 0-201 5 R[facility] Rendering . [address] [place] [address], [id number], [place]. tel:[phone] [facility], [address] [facility], [place], [place], [id number] , [place] tel:[phone] [facility] Location Presence of intraocular lens 7-201 5 [facility] Rendering . [address] [place] [address], [id number], [place]. tel:[phone] [facility], [facility] [address] [facility], [place], [place], [id number] , [place] tel:[phone] [facility] Location Age-related nuclear cataract, bilateralPosterior subcapsular polar age-related cataract, right eyeRegular astigmatism, bilateral 5 [facility] Rendering . [address] [place], [address], [place]. [phone] Family History Family Member Type Diagnosis Age At Onset No Information Payers Payer name Insurance type Covered republican ID Authorludaa tess(s) No Information Social History Type Description Quantity Date Captured Comments Alcohol Use Details Unknown Caffeine Use Details Unknown Tobacco Use Status Former smoker Smoking Status Former smoker Non-Smoking Tobacco Use Details : No Details Available : No Details Available Sex Male Chief Complaint And Reason For Visit No Information Reason For Referral Reason For Referral No Information History Of Present Illness Encounter Date Complaint History Of Prese nt Illness No Information Functional Status Date Functional Assessmen t No Information Instructions Date Instruction Additional Infor valencia Impression/Plan Related to Diagn osis Description: Regular astigmatism of both eyes \nDiagnosis Code: 367.21 Impression/Plan Related to Diagn osis Description: Keratoconjunctivitis sicca, not specified as Sjogren's, bilateral \nDiagnosis Code: 370.33 Impression/Plan Related to Diagn osis Description: Posterior capsular opacification visually significant of both eyes \nDiagnosis Code: 366.53 Impression/Plan Related to Diagn osis Description: Drusen of macula of both eyes \nDiagnosis Code: 362.57 Impression/Plan Related to Diagn osis Description: Epiretinal membrane, both eyes \nDiagnosis Code: 362.56 Impression/Plan Related to Diagn osis Description: Posterior capsular opacification visually significant of both eyes \nDiagnosis Code: 366.53 Impression/Plan Related to Diagn osis Description: Drusen of macula of both eyes \nDiagnosis Code: 362.57 Impression/Plan Related to Diagn osis Description: Epiretinal membrane, both eyes \nDiagnosis Code: 362.56 Impression/Plan Related to Diagn osis Description: ERM OD \nDiagnosis Code: 362.56 Impression/Plan Related to Diagn osis Description: Keratoconjunctivitis sicca, not specified as Sjogren's, bilateral \nDiagnosis Code: 370.33 Impression/Plan Related to Diagn osis Description: Pseudophakia OU \nDiagnosis Code: V43.1 Impression/Plan Related to Diagn osis Description: Regular astigmatism of both eyes \nDiagnosis Code: 367.21 Impression/Plan Related to Diagn osis Description: Cataract, posterior subcapsular (senile) OU \nDiagnosis Code: 366.14 Impression/Plan Related to Diagn osis Description: Age-related nuclear cataract of both eyes \nDiagnosis Code: 366.16 Impression/Plan Related to Diagn osis Description: Pseudophakia OU \nDiagnosis Code: V43.1 Impression/Plan Related to Diagn osis Description: Pseudophakia OU \nDiagnosis Code: V43.1 Impression/Plan Related to Diagn osis Description: Pseudophakia of right eye \nDiagnosis Code: V43.1 Impression/Plan Related to Diagn osis Description: PSEUDOPHAKIA OF RIGHT EYE \nDiagnosis Code: V43.1 Impression/Plan Related to Diagn osis Description: Regular astigmatism of both eyes \nDiagnosis Code: 367.21 Impression/Plan Related to Diagn osis Description: Cataract, posterior subcapsular (senile) OU \nDiagnosis Code: 366.14 Impression/Plan Related to Diagn osis Description: Age-related nuclear cataract of both eyes \nDiagnosis Code: 366.16 Assessments Type Assessment Date No Information Patient Care Teams Name Effective Dates (start - stop) Status Members No Information
--- NOTE | 2025-02-14 13:53 | A.OFFVIS_ITS ---
Vital Signs 02/14/25 13:55 02/14/25 13:59 Height 5 ft 7 in 5 ft 7 in Weight 178 lb 9.191 oz BMI 28.0 BP 130/74 Blood Pressure Location Lt brachial Lt brachial Position Sitting Sitting Pulse 83 Intake Visit Reasons: r/s 02/24/25 1 yr followup w/ekg s/p echo Intake Note: 1 year follow-up with ekg after echo feeling good Grinder Required: No Allergies Sulfa (Sulfonamide Antibiotics) Allergy (Severe, Verified 09/19/22 13:00) Irritable penicillin G Allergy (Mild, Verified 09/19/22 13:00) rash Medication List - Last Reconciled 02/14/25 by Jeff Donis MD amlodipine 5 mg PO DAILY apixaban (Eliquis) 5 mg PO BID carvedilol 12.5 mg PO BID lisinopril 40 mg PO DAILY vitamin B complex (B Complex-Vitamin B12 tablet) 1 tab PO DAILY HPI Comments Details: Ananda comes for follow-up. Recent echocardiogram shows stable mild aortic stenosis. Low normal LV ejection fraction. He had severe left atrial enlargement. He has no new symptoms. Remains pretty active. Denies any prolonged palpitation irregular heartbeat. Denies any worsening exercise intolerance with no worsening shortness of breath or fatigue. No orthopnea, PND, leg edema. Denies any chest pain. No lightheadedness, syncope. No bleeding issues or neurologic events. Takes all his medications regularly. I do not have the copy of the most recent renal panel. [facility] Medical History HTN (hypertension) Surgical History History of back surgery Hx of elbow surgery Family History Father No problems noted. Mother No problems noted. Brother CHF (congestive heart failure) CAD (coronary artery disease) Social History Patient Tobacco Use Status: Former Tobacco user Review of Systems Const Denies chills, Denies fatigue, Denies fever(s), Denies frequent falls, Denies weakness, Denies weight gain and Denies weight loss ENT Denies dizziness Card Denies chest pain, Denies leg edema, Denies lightheadedness, Denies palpitations, Denies dyspnea, Denies dyspnea on exertion, Denies orthopnea and Denies other (loss of consciousness) Resp Denies cough, Denies dyspnea and Denies dyspnea on exertion GI Denies hematochezia and Denies change in stool character Musc Denies abnormal gait, Denies muscle weakness, Denies numbness, Denies radiating pain into limb and Denies tingling Neuro Denies Abnormal speech present, Denies abnormal gait, Denies dizziness, Denies frequent falls, Denies numbness, Denies tingling and Denies weakness Endo Denies fatigue and Denies palpitations Physical Exam Vital Signs: Last Vital Signs Pulse 83 02/14/25 13:55 BP 130/74 02/14/25 13:55 BMI result Body Mass Index 28.0 Const General: cooperative, comfortable, no acute distress, alert, awake, Physically active and well groomed Nutritional Appearance: average body habitus Orientation/consciousness: patient oriented x3 Limitations: no limitations Neck Neck: Yes trachea midline, Yes supple and Yes no JVD Resp Effort & Inspection: normal respiratory effort Auscultation: clear to auscultation bilaterally Cardio Jugular venous distension: no JVD Rate: regular rate Rhythm: abnormal rhythm irregularly irregular Heart sounds: S1 normal heart sound present, S2 normal heart sound present, no click, no gallops, Murmur heart sound present systolic early and no rubs GI Auscultation: normal bowel sounds Neuro General: patient oriented x3 and no focal motor deficits Speech: No Abnormal speech present Extrem General: Yes no clubbing, cyanosis or edema Office Procedures EKG Details: EKG shows atrial fibrillation with voltage criteria for LVH with nonspecific ST- T changes 22022-[id number], Complete Assessment & Plan Assessment & Plan (1) Persistent atrial fibrillation: Code(s): I48.19 - Other persistent atrial fibrillation Category: Medical Plan: Chronic persistent atrial fibrillation without any worsening symptoms. At this point time will continue rate control approach. Importance of continuing medical therapy was discussed. Continue full oral anticoagulation, currently on Eliquis 5 mg b.i.d.. Concerned about her renal insufficiency. If his creatinine is about 1.5 consistently will need reduction in his dose of apixaban to 2.5 mg b.i.d.. Continue carvedilol therapy. No indication for rhythm control approach. (2) Aortic stenosis: Code(s): I35.0 - Nonrheumatic aortic (valve) stenosis Category: Medical Plan: Aortic stenosis which is mild and remained stable. Requires no interventions except for medical therapy. Currently on full oral anticoagulation Eliquis. Also blood pressure is currently well optimized. Continue current therapy. Importance of good blood pressure control was discussed. Target goal blood pressure less than 130/84. Consider statin therapy with target goal LDL less than 70 mg/dL. Follow up in the clinic in 1 year's time. Echocardiogram in 2 years time. Thank you for allowing me to partake in his care Coding Level of Care Code Est Pt Level 4 (52562) Complex EM visit Add On G2211 Diagnoses Persistent atrial fibrillation I48.19 Aortic stenosis I35.0 CPT Codes EKG - CPT: 73897-[id number], Complete ([id number])
[2025-02-14 13:55] VITALS: BP 130/74; PULSE 83; BMI 28.0
--- OUTSIDE RECORDS SUMMARY | 2025-02-14 17:18 | XMS_ITS | Patient Health Record ---
Author Organization [facility] Address [address] [place] [address] Care Team Providers Care Food Service Order Clerk Name Role Phone Juan Cárdenas MD Primary Care Provider Raghavendra Daily Unavailable [phone] Allergies Allergen (clinical drug ingredient) Drug/Non Drug [...] Packs 240 GM As direc moe Orally once; Duration: 1 dose 12/20/2011 Active Baby Aspirin 81 mg A ctive Problems Problem Type SNOMED Code ICD Code Onset Dates Problem Status W/U Status Risk Notes Problem Screening for colon cancer (063570974) Screening for colon cancer (V76.51) Active confirmed Problem History of adenomatous polyp of colon (725776473) History of adenomatous polyp of colon (V12.72) Active confirmed Problem Family history of malignant neoplasm of gastrointestinal tract (832132156) Family history of cancer of GI tract (V16.0) Active confirmed Plan Of Treatment Future Test Test Name Order Date COLONOSCOPY 12/20/2011 Insurance Providers Payer Name Payer Address Payer Phone Subscriber Number Group Number Insured Name Patient Relationship to Insured Coverage Start Date Coverage End Date MEDICARE OF [place] [address] [place] [address] [id number] JITENDRA HELLER Self - patient is the insured MEDEX ATTN CLAIMS [address] [place] [address] [id number] JITENDRA HELLER Self - patient is the insured Medical (General) History Medical History History ICD Code hx of colon polyps hypertension Denies [place],DM,CVA,Lung disease,renal dise ase Surgical History Surgery Date(Month/Year) cervical spine disc surgery broken elbow
--- OUTSIDE RECORDS SUMMARY | 2025-02-14 17:18 | XMS_ITS | Encounter Summary ---
Author Organization [facility] Address [address] [place] [address] Phone Care Team Providers Care Sugar Cane Planter Machine Operator Name Role Phone Juan Cárdenas MD Unavailable Juan Cárdenas MD Primary Care Provider [phone] Reason for Visit * Reason Onset Date Comments Hematuria 09/10/2022 Encounter Details Date Type Department Care Team (Late st Contact Info) Description 09/10/2022 Nurse Triage [facility] Internal Medicine [address] [place], [place] [id number] Juan Cárdenas MD [address] [place] [address] [email or web address] Social History Tobacco Use Types Packs/Day [...] reply from Dr. Cárdenas on this prior [facility] Nurse Triage Encounter Note Reason for Triage [...] Care Center. Go to the one at [facility].Leave now. A nearby Urgent Care Center [...] Care Team (Late st Contact Info) Description 09/05/2025 9:30 AM EDT Office Visit [facility] Internal Medicine [address] [place], [place] [phone] Juan Cárdenas MD [address] [place] [address] [email or web address] documented as of this encounter Results * (ABNORMAL) URINALYSIS WITH SEDIMENT (09/12/2022 3:46 PM EDT) WBC 0-4(A) NONE SEEN /hpf [facility] RBC 0-2(A) NONE SEEN /hpf [facility] URINE EPITHELIAL 0-4(A) NONE SEEN [facility] MUCUS NONE SEEN NONE SEEN /hpf [facility] BACTERIA NONE SEEN NONE SEEN /hpf [facility] COLOR Yellow Yellow [facility] CLARITY Clear [facility] GLUCOSE Negative Negative [facility] BILI Negative Negative [facility] KETONES Negative Negative [facility] SPECIFIC GRAVITY 1.025 1.005 - 1.030 [facility] BLOOD Negative Negative [facility] PH 6.0 5.0 - 8.0 [facility] Protein-UA Negative Negative [facility] NITRITE Negative Negative [facility] Leukocyte esterase, ur Negative Negative [facility] Urine (Urine) 09/12/2022 3:4 6 PM EDT 09/12/2022 3:49 PM EDT us Juan Cárdenas MD URINE ORDERABLES Final Result Performing Organization Address City/[facility]/ZIP Co de Phone Number [address] [address] * Urine culture (09/10/2022 1:11 PM EDT) Special Requests None 09/10/2022 8:31 PM EDT [facility] Urine Culture NO GROWTH 48HRS 09/12/2022 12:32 PM EDT [facility] Urine (Urine) 09/10/2022 1:1 1 PM EDT 09/10/2022 8:32 PM EDT us Juan Cárdenas MD MICROBIOLOGY - GENERAL ORDERA BLES Final Result Performing Organization Address City/[facility]/ZIP Co de Phone Number [address] [address] documented in this encounter Visit Diagnoses Diagnosis Gross hematuria documented in this encounter Additional Health Concerns Infection Onset Date Last Indicated Resolved Time COVID-19 12/06/2023 12/06/2023 12/27/2023 1:21 AM EDT CoV-Risk 08/20/2024 08/20/2024 08/31/2024 1:21 AM EDT Assessment Noted Time PHQ-2 Depression Total Score: 0 08/13/19 1:49 PM EDT documented as of this encounter Care Teams Sugar Cane Planter Machine Operator Relationship Specialty Start Date End Date Juan Cárdenas MD [address] [place] [address] PCP - General Internal Medicine 10/29/19 Juan Cárdenas MD [address] [place] [address] Insurance Assigned Provider 07/26/23 documented as of this encounter Additional Source Comments The information contained in this document represents components of the legal health record. It is not the complete legal health record.[facility]
--- OUTSIDE RECORDS SUMMARY | 2025-02-14 17:18 | XMS_ITS | Clinical Summary ---
Author Organization [facility] Address [address] [address] Phone Care Team Providers Care Upholstery Trimmer Name Role Phone Juan Cárdenas MD Unavailable [phone] Juan Cárdenas MD Primary Care Provider [phone] Allergies Active Allergy Reactions Criticality Noted Date Comments Bee Pollen Unknown 02/04/2025 Penicillin Unknown 02/04/2025 Penicillins Swelling 10/07/2019 Arms & face Sulfa (Sulfonamide Antibiotics) Other (See Comments),Swelling,U nknown 01/06/2018 drove him wacky Venom-Wasp Swelling 02/06/2021 Also allergic to hornets Medications EPINEPHrine (EPIPEN 2-QUINN) 0.3 mg/0.3 mL auto-injectorInd ications:Bee allergy status Inject 0.3 mL (0.3 mg total) into the muscle once as needed for anaphylaxis. use as needed for bee stings Intramuscular as directed 2 Device 3 10/17/19 18 Active cyanocobalamin, vitamin B-12, 100 MCG tablet Take 1,000 mcg by mouth daily. Active celecoxib (CELEBREX) 200 MG capsuleIndicatio ns:Chronic knee pain, unspecified laterality Take 1 capsule (200 mg total) by mouth daily. 20 capsule 02/20/20 23 Active Additional Information Patient taking differently:200 mg OralDaily as needed, Reported on 02/04/2025 tadalafiL (CIALIS, ADCIRCA) 20 MG tabletIndication s:Erectile dysfunction, unspecified erectile dysfunction type Take 1 tablet (20 mg total) by mouth daily as needed. 10 tablet 08/14/19 24 Active Additional Information Patient not taking.Reported on 02/04/2025 carvedilol (COREG) 12.5 MG tabletIndication s:Essential hypertension Take 1 tablet (12.5 mg total) by mouth 2 (two) times a day with meals. 180 tablet 3 02/16/20 24 Active lisinopril (PRINIVIL,ZESTRI L) 40 MG tabletIndication s:Essential hypertension Take 1 tablet (40 mg total) by mouth daily. 90 tablet 3 02/16/20 24 Active amLODIPine (NORVASC) 5 MG tabletIndication s:Essential hypertension Take 1 tablet (5 mg total) by mouth daily. 90 tablet 3 02/16/20 24 Active ELIQUIS 5 mg tabletIndication s:Benign essential hypertension,New onset atrial fibrillation TAKE 1 TABLET TWICE A DAY 180 tablet 12/31/19 Active Active Problems Problem Noted Date Diagnosed Date Malignant melanoma of skin of face 02/11/2023 Essential hypertension 02/01/2020 Hypertension 01/11/2019 History of aortic insufficiency 01/11/2019 Overview (01/11/2019): and mitral insufficiency History of transient ischemic attack (TIA) 04/21 Overview (01/11/2019): in 04/2003 - symptoms were visual abnormality affecting the right eye (amaurosis fugax) Encounters Date Type Department Care Team Description 02/04/2025 10:56 AM EDT - 02/04/2025 11:59 PM EDT Hospital Encounter [facility] [address] [facility] [place] [address] Juan Cárdenas MD Discharge Disposition: Home or Self Care 02/04/2025 9:30 AM EDT Office Visit [facility] Internal Medicine [address] [facility] [place] [address] Juan Cárdenas MD Need for prophylactic vaccination and inoculation against influenza (Primary Dx); Benign essential hypertension; Paroxysmal atrial fibrillation; Impaired fasting glucose; Anemia, unspecified type 02/04/2025 Orders Only [facility] Internal Medicine [address] [facility] [place] [address] ProviderCodi MD 01/24/2025 Orders Only [facility] Medicine [address] [place] [address] Provider, MD Codi 12/30/2024 Refill [facility] Internal Medicine [address] [place] [address] Juan Cárdenas MD Medication Refill 12/08/2024 Ancillary Orders [facility],Outside Imaging [address] [place] [address] System, Provider Not In, PhD 12/08/2024 Telephone [facility] Internal Medicine [address] [place] [address] Juan Cárdenas MD possible artery calcification 11/26/2024 - 11/26/2024 11:59 PM EDT Hospital Encounter [facility],Outside Imaging [address] [place] [address] System, Provider Not In, PhD Discharge Disposition: Home or Self Care from Last 3 Months Immunizations Immunization Administration Dates Next Due COVID-19 (Pre-02/10) Pfizer Vaccine, mRNA, PF 06/19/2020,05/29/2020 COVID-19 Pfizer Comirnaty Vaccine 12+ 05/10/2024 ,03/31/2023 INFLUENZA, SPLIT VIRUS, TRIV ALENT W/ PRESERVATIVE IM 12/20/2016,02/21/2012 Influenza High-Dose Quadriva lent Preservative Free IM 02/11/2023,02/05/2022,02/01/2020 Influenza High-Dose Trivalen t Preservative Free IM 02/04/2025,01/02/2024,01/11/2019,01/09,01/06/2017,02/08/2016,02/20/2015 ,02/18/2014,02/15/2013 Influenza Quadrivalent Adjuv anted Preservative Free IM [...] Smoking Tobacco: Former Cigarettes 1 18 1 1974 Smokeless Tobacco: Never Tobacco Cessation:Counseling Given: [...] Sign Reading Time Taken Comments Blood Pressure 130/78 02/04/2025 10:17 AM EDT Pulse 71 02/04/2025 9:22 AM EDT Temperature 36.4 C (97.5 F) 02/04/2025 9:22 AM EDT Respiratory Rate 18 02/04/2025 9:22 AM EDT Oxygen Saturation 98% 02/04/2025 9:22 AM EDT Inhaled Oxygen Concentration - - Weight 81.8 kg (180 lb 6.4 oz) 02/04/2025 9:22 A M EDT Height 169.3 cm (5' 6.65 ) 02/04/2025 9:22 AM ED T Body Mass Index 28.55 02/04/2025 9:22 AM EDT Plan of Treatment Upcoming Encounters Date Type Department Care Team (Late st Contact Info) Description 09/05/2025 9:30 AM EDT Office Visit [facility] Internal Medicine [address] [place] [address] Juan Cárdenas MD [address] [place] [address] [email or web address] Maintenance Due Date Last Done Comments RSV VACCINE (1 - 1-dose 75+ series) 2012 Adult Td,Tdap Booster 09/11/2021 09/12/2011, 002 COVID-19 VACCINE ( season) 2024 05/10/2024, 03/31/2023, 02/05/2022, Additional history exists DEPRESSION SCREENING 08/20/2025 08/20/2024 CREATININE LEVEL 02/04/2026 02/04/2025, 10/2024, 12/19/2023, Additional history exists POTASSIUM LEVEL 02/04/2026 02/04/2025, 05/0 10/2024, 12/19/2023, Additional history exists PNEUMOCOCCAL VACCINES (50+ years) Completed 09/30/2014, 09/22/2012, 01/19/2003 ZOSTER VACCINES Completed 04/25/2020, 01/19, 10/20/2011 INFLUENZA VACCINE Completed 02/04/2025, , 02/11/2023, Additional history exists HEPATITIS A VACCINES Aged Out No long [...] Procedure Name Priority Date/Time Associated Diagnosis Comments OUTSIDE IMAGING Routine 02/04/2025 1:09 PM EDT CBC AND DIFFERENTIAL Routine 02/04/2025 10:56 AM EDT Paroxysmal atrial fibrillation Impaired fasting glucose Anemia, unspecified type BASIC METABOLIC PANEL Routine 02/04/2025 10:56 AM EDT Paroxysmal atrial fibrillation Impaired fasting glucose FERRITIN Routine 02/04/2025 10:56 AM EDT Anemia, unspecified type IRON AND IRON BINDING CAPACITY Routine 02/04/2025 10:56 AM EDT Anemia, unspecified type VITAMIN B12 Routine 02/04/2025 10:56 AM EDT Anemia, unspecified type FOLATE Routine 02/04/2025 10:56 AM EDT Anemia, unspecified type DERMATOPATHOLOGY Routine 01/21/2025 2:5 0 PM EDT XR FACE OUTSIDE (NO INTERPRETATION) Routine 11/26/2024 12:00 AM EDT from Last 3 Months Results * Outside Imaging Report Only (02/04/2025 1:09 PM EDT) us Historical Provider IMG XR CHEST Final Res ult * Iron and iron binding capacity (02/04/2025 10:56 AM EDT) IRON 148 45 - 160 ug/dL [facility] IRON BINDING CAPACITY 287 228 - 428 ug/dL [facility] TRANSFERRIN SATURAT. 52 20 - 55 % [facility] Blood 02/04/2025 10:5 6 AM EDT 02/04/2025 10:57 AM EDT us Juan Cárdenas MD LAB BLOOD ORDERABLES Final Re sult [facility] [address] [place] [address] * (ABNORMAL) CBC and differential (02/04/2025 10:56 AM EDT) WBC 6.99 4.00 - 11.00 K/uL [facility] RBC 4.10(L) 4.50 - 5.90 M/uL [facility] HGB 13.6 13.5 - 17.5 g/dL [facility] HCT 40.3(L) 41.0 - 53.0 % [facility] PLT 241 150 - 450 K/uL [facility] MCV 98.3 80.0 - 100.0 fL [facility] MCH 33.2(H) 27.0 - 31.0 pg [facility] MCHC 33.7 32.0 - 36.0 g/dL [facility] RDW 13.2 11.5 - 14.5 % [facility] MPV 11.6 8.4 - 12.0 fL [facility] NRBC 0.00 0.00 /100 WBCs [facility] ABSOLUTE NRBC 0.00 0.00 K/uL [facility] DIFF METHOD Auto [facility] NEUTS 53.5 48.0 - 76.0 % [facility] LYMPHS 25.9 18.0 - 41.0 % [facility] MONOS 15.3(H) 4.0 - 11.0 % [facility] EOS 4.0 0.0 - 5.0 % [facility] BASOS 1.0 0.0 - 1.5 % [facility] Granulocytes, immature (%) 0.3 0.0 - 0.9 % [facility] ABSOLUTE NEUTS 3.74 1.92 - 7.60 K/uL [facility] ABSOLUTE LYMPHS 1.81 0.72 - 4.10 K/uL [facility] ABSOLUTE MONOS 1.07 0.16 - 1.10 K/uL [facility] ABSOLUTE EOS 0.28 0.00 - 0.50 K/uL [facility] ABSOLUTE BASOS 0.07 0.00 - 0.15 K/uL [facility] Granulocytes, immature 0.02 0.00 - 0.09 K/uL [facility] Blood 02/04/2025 10:5 6 AM EDT 02/04/2025 10:57 AM EDT us Juan Cárdenas MD LAB BLOOD ORDERABLES Final Re sult Performing Organization Address [facility]/ZIP Co de Phone Number [address] [address] * Folate (02/04/2025 10:56 AM EDT) FOLIC ACID 14.6 4.2 - 19.9 ng/mL [facility] Blood 02/04/2025 10:5 6 AM EDT 02/04/2025 10:57 AM EDT us Juan Cárdenas MD LAB BLOOD ORDERABLES Final Re sult Performing Organization Address [facility] Co de Phone Number [address] [address] * Ferritin (02/04/2025 10:56 AM EDT) FERRITIN 399 30 - 400 ug/L [facility] Blood 02/04/2025 10:5 6 AM EDT 02/04/2025 10:57 AM EDT us Juan Cárdenas MD LAB BLOOD ORDERABLES Final Re sult Performing Organization Address [facility] Co de Phone Number [address] [address] * Vitamin B12 (02/04/2025 10:56 AM EDT) VITAMIN B12 1,002 232 - 1,245 pg/mL [facility] Blood 02/04/2025 10:5 6 AM EDT 02/04/2025 10:57 AM EDT us Juan Cárdenas MD LAB BLOOD ORDERABLES Final Re sult Performing Organization Address [facility]/ZIP Co de Phone Number [address] [address] * (ABNORMAL) Basic metabolic panel (02/04/2025 10:56 AM EDT) SODIUM 139 133 - 146 mmol/L [facility] CHLORIDE 105 96 - 108 mmol/L [facility] POTASSIUM 4.6 3.3 - 5.1 mmol/L [facility] CO2 25 21 - 35 mmol/L [facility] BUN 20(H) 6 - 19 mg/dL [facility] CREATININE 1.10 0.5 - 1.5 mg/dL [facility] GLUCOSE 89 70 - 99 mg/dL [facility] CALCIUM 9.7 8.4 - 10.3 mg/dL [facility] EGFR 65 >59 mL/min/1.7 3m2 [facility] Comment:Estimated glomerular filtration rate calculated using the CKD-EPI refit equation. ANION GAP 14 10 - 20 mmol/L [facility] Blood 02/04/2025 10:5 6 AM EDT 02/04/2025 10:57 AM EDT us Juan Cárdenas MD LAB BLOOD ORDERABLES Final Re sult [facility] [address] [place] [address] * Dermatopathology (01/21/2025 2:50 PM EDT) us Historical Provider PATHOLOGY ORDERABLES Susan l Result * XR Face Outside (No Interpretation) (11/26/2024 12:00 AM EDT) Narrative SYSTEMGENERATED, DOCUMENTATION - 12/08/2024 3:27 PM EDT This study is for PACS storage only and not for interpretation. us Provider Not In System PhD IMG OUTSIDE IMAGING W /OUT INTERPRETATION Final Result from Last 3 Months Insurance MEDICARE PART A & B Member Subscriber Plan / Payer (Ef fective 2002-) Name:Jitendra Heller Member ID:[id number] Relation to Subscriber:Self Name:Jitendra Heller Subscriber ID:[id number] Payer ID:[id number] Group ID:Not on file Type:Medicare Address: [employer] [address] [employer] MEDEX SUPPLEMENT MEDICARE PART A & B [employer] MEDEX SUPPLEMENT MEDICARE PART A & B [employer] MEDEX SUPPLEMENT MEDICARE PART A & B [employer] MEDEX SUPPLEMENT MEDICARE PART A & B [facility] MEDEX SUPPLEMENT MEDICARE PART A & B [employer] MEDEX SUPPLEMENT MEDICARE PART A & B [employer] MEDEX SUPPLEMENT MEDICARE PART A & B [employer] MEDEX SUPPLEMENT MEDICARE PART A & B [employer] MEDEX SUPPLEMENT Care Teams Upholstery Trimmer Relationship Specialty Start Date End Date Juan Cárdenas MD [address] [place] [address] [email or web address] PCP - General Internal Medicine 10/29/19 Juan Cárdenas MD [address] [place] [address] [email or web address] Insurance Assigned Provider 07/26/23 Additional Source Comments The information contained in this document represents components of the legal health record. It is not the complete legal health record.[facility]
--- OUTSIDE RECORDS SUMMARY | 2025-02-14 17:18 | XMS_ITS | Encounter Summary ---
Author Organization [facility] Address [address] [address] Phone Care Team Providers Care Pulmonary Care Nurse Name Role Phone Juan Cárdenas MD Unavailable [phone] Juan Cárdenas MD Primary Care Provider [phone] Encounter Details Date Type Department Care Team (Late st Contact Info) Description 02/04/2025 Orders Only [facility] Internal Medicine [address] [facility] [place] [address] Provider, MD Codi [address] [place], [place] [id number] Social History Tobacco Use Types Packs/Day Years [...] food would run out Not on file 05/06 /2025 In the past 12 months have y [...] Description 09/05/2025 9:30 AM EDT Office Visit [facility] Internal Medicine [address] [place] [address] Juan Cárdenas MD [address] [place] [address] documented as of this encounter Procedures Procedure Name Priority Date/Time Associated Diagnosis Comments OUTSIDE IMAGING Routine 02/04/2025 1:09 PM EDT documented in this encounter Results * Outside Imaging Report Only (02/04/2025 1:09 PM EDT) us Historical Provider IMMaricarmen XR CHEST Final Res ult documented in this encounter Visit Diagnoses Not on filedocumented in this encounter Additional Health Concerns Assessment Noted Time PHQ-2 Depression Total Score: 0 08/21/19 25 2:16 PM EDT documented as of this encounter Care Teams Pulmonary Care Nurse Relationship Specialty Start Date End Date Juan Cárdenas MD [address] [place] [address] PCP - General Internal Medicine 10/29/19 Juan Cárdenas MD [address] [place] [address] Insurance Assigned Provider 07/26/23 documented as of this encounter Additional Source Comments The information contained in this document represents components of the legal health record. It is not the complete legal health record.[facility]
--- OUTSIDE RECORDS SUMMARY | 2025-02-14 17:18 | XMS_ITS | Clinical Summary ---
Author Organization [facility] Address [address] [facility] [address] [place] [address] Phone Care Team Providers Care Truck Engine Technician Name Role Phone Juan Cárdenas MD Primary Care Provider [phone] Allergies Active Allergy Reactions Criticality Noted Date [...] age to complete this topic Insurance Medicare [facility] Medicare [facility] Care Teams Truck Engine Technician Relationship Specialty Start Date End Date Juan Cárdenas MD [address] [place] [address] PCP - General Internal Medicine 09/13/20
--- OUTSIDE RECORDS SUMMARY | 2025-02-14 17:18 | XMS_ITS | Encounter Summary ---
Author Organization [facility] Address [address] [place] [address] Phone Care Team Providers Care Data Typist Name Role Phone Juan Cárdenas MD Unavailable [phone] Juan Cárdenas MD Primary Care Provider [phone] Encounter Details Date Type Department Care Team ([facility] Contact Info) Description 09/10/2022 Procedure Pass [facility], Ct Scan - [address] [address] Social History Tobacco Use Types Packs/Day Years [...] Department Care Team (Late Contact Info) Description 09/05/2025 9:30 AM EDT Office Visit [facility] Internal Medicine [address] [place] [address] Juan Cárdenas MD [address] [place] [address] [email or web address] documented as of this encounter Visit Diagnoses Not on filedocumented in this encounter Additional Health Concerns Infection Onset Date Last Indicated Resolved Time COVID-19 12/06/2023 12/06/2023 12/27/2023 1:21 AM EDT CoV-Risk 08/20/2024 08/20/2024 08/31/2024 1:21 AM EDT Assessment Noted Time PHQ-2 Depression Total Score: 0 08/13/19 1:49 PM EDT documented as of this encounter Care Teams Data Typist Relationship Specialty Start Date End Date Juan Cárdenas MD [address] [place] [address] PCP - General Internal Medicine 10/29/19 Juan Cárdenas MD [address] [place] [address] Insurance Assigned Provider 07/26/23 documented as of this encounter Additional Source Comments The information contained in this document represents components of the legal health record. It is not the complete legal health record.[facility]
--- OUTSIDE RECORDS SUMMARY | 2025-02-14 17:18 | XMS_ITS | Encounter Summary ---
Author Organization [facility] Address [address] [place] [address] Phone Care Team Providers Care Bead Machine Operator Name Role Phone Juan Cárdenas MD Unavailable Juan Cárdenas MD Primary Care Provider [phone] Reason for Visit * Reason Comments Medication Refill Encounter Details Date Type Department Care Team (Late st Contact Info) Description 12/30/2024 Refill [facility] Internal Medicine [address] [place], [place] [address] Juan Cárdneas MD [address] [place] [address] [email or web address] Medication Refill Social History Tobacco Use Types [...] 08/24/2024 Juan Cárdenas MD - Internal Medicine [facility] > Requested f/u: Not specified Upcoming visit: 02/04/2025 Juan Cárdenas MD - Internal Medicine [facility] ACTIONS TAKEN BY Jessica Sanchez CMA - [...] Description 09/05/2025 9:30 AM EDT [facility] [address] [facility] [place] [address] Juan Cárdenas MD [address] [place] [address] [email or web address] documented as of this encounter Visit Diagnoses Diagnosis Benign essential hypertension Essential hypertension, benign New onset atrial fibrillation Atrial fibrillation documented in this encounter Additional Health Concerns Assessment Noted Time PHQ-2 Depression Total Score: 0 08/21/19 25 2:16 PM EDT documented as of this encounter Care Teams Bead Machine Operator Relationship Specialty Start Date End Date Juan Cárdenas MD [address] [place] [address] [email or web address] PCP - General Internal Medicine 10/29/19 Juan Cárdenas MD [address] [place] [address] Insurance Assigned Provider 07/26/23 documented as of this encounter Additional Source Comments The information contained in this document represents components of the legal health record. It is not the complete legal health record.[facility]
--- OUTSIDE RECORDS SUMMARY | 2025-02-14 17:18 | XMS_ITS | Encounter Summary ---
Author Organization [facility] Address [address] [address] Phone Care Team Providers Care Client Consultant Name Role Phone Juan Cárdenas MD Unavailable [phone] Juan Cárdenas MD Primary Care Provider [phone] Encounter Details Date Type Department Care Team (Late st Contact Info) Description 12/08/2024 Ancillary Orders [facility],Outside Imaging [address] [place] [address] System, Provider Not In, [facility] [employer] [address] [address] Social History Tobacco Use Types Packs/Day Years [...] Description 09/05/2025 9:30 AM EDT Office Visit [facility] Internal Medicine [address] [place] [address] Juan Cárdenas MD [address] [place] [address] [email or web address] documented as of this encounter Results * [...] documented as of this encounter Care Teams Client Consultant Relationship Specialty Start Date End Date Juan Cárdenas MD [address] [place] [address] PCP - General Internal Medicine 10/29/19 Juan Cárdenas MD [address] [place] [address] [email or web address] Insurance Assigned Provider 07/26/23 documented as of this encounter Additional Source Comments The information contained in this document represents components of the legal health record. It is not the complete legal health record.[facility]
--- OUTSIDE RECORDS SUMMARY | 2025-02-14 17:18 | XMS_ITS | Encounter Summary ---
Author Organization Located Within [facility] Address [address] [place] [id number] Phone Care Team Providers Care Accounting Administrator Name Role Phone Juan Cárdenas MD Unavailable [phone] Juan Cárdenas MD Primary Care Provider [phone] Encounter Details Date Type Department Care Team (Late st Contact Info) Description 01/24/2025 Orders Only [facility] Medicine [address] [place] [address] Provider, MD Codi [address] [place] [address] Social History Tobacco Use Types Packs/Day Years Used Date Smoking Tobacco: Former Cigarettes 1 18 1 7 - 1974 Smokeless Tobacco: Never Alcohol Use [...] Description 09/05/2025 9:30 AM EDT Office Visit [facility] Internal Medicine [address] [place] [address] Juan Cárdenas MD [address] [place] [address] documented as of this encounter Procedures Procedure Name Priority Date/Time Associated Diagnosis Comments DERMATOPATHOLOGY Routine 01/21/2025 2:50 PM EDT documented in this encounter Results * Dermatopathology (01/21/2025 2:50 PM EDT) us Historical Provider PATHOLOGY ORDERABLES Susan l Result documented in this encounter Visit Diagnoses Not on filedocumented in this encounter Additional Health Concerns Assessment Noted Time PHQ-2 Depression Total Score: 0 08/21/19 25 2:16 PM EDT documented as of this encounter Care Teams Accounting Administrator Relationship Specialty Start Date End Date Juan Cárdenas MD [address] [place] [address] [email or web address] PCP - General Internal Medicine 10/29/19 Juan Cárdenas MD [address] [place] [address] [email or web address] Insurance Assigned Provider 07/26/23 documented as of this encounter Additional Source Comments The information contained in this document represents components of the legal health record. It is not the complete legal health record.Located Within [facility]
== END 2025-02-14 14:19 | disposition home or self-care (01) ==
LOC: HO.HCS 13:39
PROVIDERS: PCP Internal Medicine; Visit Provider Internal Medicine Cardiovascular Disease
DX: I48.19 Other persistent atrial fibrillation (principal); I35.0 Nonrheumatic aortic (valve) stenosis
CPT/HCPCS: 93010; 99214; G2211

== ENCOUNTER → 2025-02-14 13:39 | Outpatient (BNVA) | payer MEDICARE, SELFPAY | PROVIDERS: PCP Internal Medicine; Visit Provider Internal Medicine Cardiovascular Disease | DX: I48.19 Other persistent atrial fibrillation (principal); I35.0 Nonrheumatic aortic (valve) stenosis; I10 Essential (primary) hypertension; Z79.01 Long term (current) use of anticoagulants; Z87.891 Personal history of nicotine dependence | CPT/HCPCS: 93005; 99212 ==